=== PATIENT | male | born 1935 | race Caucasian/White ===

== ENCOUNTER 2016-04-23 11:57 | Observation (INO) | payer MEDICARE, OTHER ==
[~2016-04-23] VITALS: Ht 170.2 cm; Wt 76.0 kg
[2016-04-23] VITALS (8 sets, daily range): BP systolic 115–148; BP diastolic 59–68; PULSE 58–70; RESP 16–20; TEMP 98.1; O2SAT 97–99
[~2016-04-23 11:57] MED LIST: ALPR0.5T3 PO; AMIT8CAP6 PO; ASPI81TA21 PO; CARV10 PO; CLON1 PO; HYDR-3533 PO; LAMO150T PO; LEXA10TA PO; METHY10 PO; OCUV PO; OMEP20TA PO; PERC5TAB12 PO; ROSU20 PO
[2016-04-23 12:20] LABS: AUTOMATED NEUTROPHIL # 4.1 TH/MM3 (1.8-7.7); BASOPHIL # 0.1 TH/MM3 (0-0.2); BASOPHIL % 1.5 % (0.0-2.0); EOSINOPHIL # 0.2 TH/MM3 (0-0.4); EOSINOPHIL % 3.4 % (0.0-4.0); HEMATOCRIT 38.5 % (39.0-51.0); HEMO FLAGS DIFF FINAL; LYMPH % 26.8 % (9.0-44.0); LYMPHOCYTE # 1.8 TH/MM3 (1.0-4.8); MEAN CELL VOLUME 87.4 FL (80.0-100.0); MEAN CORPUSCULAR HEMOGLOBIN 28.6 PG (27.0-34.0); MEAN CORPUSCULAR HGB CONC 32.7 % (32.0-36.0); MONO % 7.9 % (0.0-8.0); NEUT % 60.4 % (16.0-70.0); PLATELET COUNT 276 TH/MM3 (150-450); RED BLOOD COUNT 4.41 MIL/MM3 (4.50-5.90); RED CELL DISTRIBUTION WIDTH 16.7 % (11.6-17.2); WHITE BLOOD COUNT 6.7 TH/MM3 (4.0-11.0)
[2016-04-23 12:26] LABS: CHLORIDE 110 MEQ/L (98-107); POTASSIUM 3.8 MEQ/L (3.5-5.1); SODIUM (NA) 143 MEQ/L (136-145)
[2016-04-23 12:30] LABS: ANION GAP 10 MEQ/L (5-15); BICARBONATE 23.3 MEQ/L (21.0-32.0); BLOOD UREA NITROGEN 11 MG/DL (7-18)
[2016-04-23] MEDS ORDERED: ASPIRIN 325 MG TAB PO ONE (12:30)
[2016-04-23] MEDS ORDERED: NITROGLYCERIN 2% OINT 1 GM PACKET TOPICAL ONE (12:30)
[2016-04-23 12:33] LABS: ALT (GPT) 17 U/L (12-78); APTT (PATIENT) 25.5 SEC (24.3-30.1); AST (GOT) 15 U/L (15-37); GLOMERULAR FILTRATION RATE 53 ML/MIN (>89); PROTHROMBIN TIME - PATIENT 10.6 SEC (9.8-11.6)
[2016-04-23 12:35] LABS: TOTAL BILIRUBIN ADULT 0.5 MG/DL (0.2-1.0)
[2016-04-23 12:36] LABS: ALKALINE PHOSPHATASE 88 U/L (45-117); CREATINE KINASE 175 U/L (39-308)
--- NOTE | 2016-04-23 12:39 | PD ---
HPI Chief Complaint: Chest Pain Time Seen by Provider: 12:17 Travel History International Travel<30 days: No Contact w/Intl Traveler<30days: No Traveled to known affect area: No History of Present Illness HPI This 80-year-old male complaining of left-sided chest pain for the clock this morning. He says he is also having some numbness of his arms and legs breath. Patient has has a history of dementia and is not aware that he has a history of heart disease. His indicates that he had stents with Dr. Cavazos 2002. She says he has had 4 stents. He is supposed to take aspirin but he refuses to take it because he bruises from IT. PFSH Past Medical History Arthritis: Yes Bipolar Disorder: Yes Anxiety: Yes Depression: Yes Cancer: Yes (PROSTATE) Cardiovascular Problems: Yes High Cholesterol: Yes Cerebrovascular Accident: Yes Diabetes: No Diminished Hearing: No Endocrine: No Gastrointestinal Disorders: Yes Genitourinary: Yes Hypertension: Yes Immune Disorder: No Implanted Vascular Access Dvce: No Kidney Stones: Yes Musculoskeletal: Yes Neurologic: No Psychiatric: Yes Reproductive: No Respiratory: No Past Surgical History Abdominal Surgery: Yes (HERNIA REPAIR) Cardiac Surgery: Yes (STENTS) Genitourinary Surgery: Yes (TURP, LITHOTRIPSY X4) Other Surgery: Yes (INGUINAL HERNIA REPAIR) Social History Alcohol Use: No (DENIES) Tobacco Use: Yes (1 PPD) Substance Use: No Allergies-Medications (Allergen,Severity, Reaction): Coded Allergies: No Known Allergies (Verified , 04/23/16) Reported Meds & Prescriptions Reported Meds & Active Scripts Active Reported Ocuvite (Multiple Vitamins W/ Minerals) 1 Tab 1 Tab PO DAILY Lortab (Hydrocodone-Acetaminophen) 5-325 Mg Tab 1 Tab PO Q6H PRN Voltaren Topical (Diclofenac Topical) 1% Gel 1 Applic TOPICAL DIRECTED PRN Restasis Opth Drops (Cyclosporine Opth Drops) 0.05% Emul 1 Drop EACH EYE BID Omeprazole 20 Mg Tab 20 Mg PO DAILY Alprazolam 0.5 Mg Tab 0.5 Mg PO DIRECTED PRN Ritalin IR (Methylphenidate HCl) 10 Mg Tab 10 Mg PO TIDAC Lamotrigine 150 Mg Tab 150 Mg PO BID Crestor (Rosuvastatin Calcium) 20 Mg Tab 20 Mg PO HS Coreg Cr 24 HR (Carvedilol) 10 Mg Cap 10 Mg PO DAILY Review of Systems General / Constitutional: No: Fever, Chills Eyes: No: Diploplia HENT: No: Headaches Cardiovascular: Positive: Chest Pain or Discomfort Respiratory: Positive: Shortness of Breath Gastrointestinal: No: Vomiting, Diarrhea Genitourinary: No: Urgency, Frequency Musculoskeletal: No: Myalgias Skin: No Rash Physical Exam Narrative GENERAL: Well-developed male SKIN: Warm and dry. HEAD: Atraumatic. Normocephalic. EYES: Pupils equal and round. No scleral icterus. No injection or drainage. ENT: No nasal bleeding or discharge. Mucous membranes pink and moist. NECK: Trachea midline. No JVD. CARDIOVASCULAR: Regular rate and rhythm. No murmur appreciated. RESPIRATORY: No accessory muscle use. Clear to auscultation. Breath sounds equal bilaterally. GASTROINTESTINAL: Abdomen soft, non-tender, nondistended. Hepatic and splenic margins not palpable. MUSCULOSKELETAL: No obvious deformities. No clubbing. No cyanosis. No edema. NEUROLOGICAL: Awake and alert. No obvious cranial nerve deficits. Motor grossly within normal limits. Normal speech. He is not oriented to time, there is repetitive questioning PSYCHIATRIC: Appropriate mood and affect; insight and judgment limited. Data Data Last Documented VS Vital Signs Date Time Temp Pulse Resp B/P Pulse Ox O2 Delivery O2 Flow Rate FiO2 04/23/16 12:48 68 18 133/64 98 Nasal Cannula 2 04/23/16 12:10 98.1 Orders Complete Blood Count With Diff (04/23/16 12:12) Comprehensive Metabolic Panel (04/23/16 12:12) Creatine Kinase (Cpk) (04/23/16 12:12) Ckmb (Isoenzyme) Profile (04/23/16 12:12) Troponin I (04/23/16 12:12) Prothrombin Time / Inr (Pt) (04/23/16 12:12) Act Partial Throm Time (Ptt) (04/23/16 12:12) Chest, Single Ap (04/23/16 12:30) Aspirin (Aspirin) (04/23/16 12:30) Nitroglycerin 2% Oint (Nitroglycerin 2% (04/23/16 12:30) CKMB (04/23/16 12:10) CKMB% (04/23/16 12:10) B-Type Natriuretic Peptide (04/23/16 13:13) Labs Laboratory Tests Test 04/23/16 12:10 White Blood Count 6.7 TH/MM3 Red Blood Count 4.41 MIL/MM3 Hemoglobin 12.6 GM/DL Hematocrit 38.5 % Mean Corpuscular Volume 87.4 FL Mean Corpuscular Hemoglobin 28.6 PG Mean Corpuscular Hemoglobin 32.7 % Concent Red Cell Distribution Width 16.7 % Platelet Count 276 TH/MM3 Mean Platelet Volume 8.8 FL Neutrophils (%) (Auto) 60.4 % Lymphocytes (%) (Auto) 26.8 % Monocytes (%) (Auto) 7.9 % Eosinophils (%) (Auto) 3.4 % Basophils (%) (Auto) 1.5 % Neutrophils # (Auto) 4.1 TH/MM3 Lymphocytes # (Auto) 1.8 TH/MM3 Monocytes # (Auto) 0.5 TH/MM3 Eosinophils # (Auto) 0.2 TH/MM3 Basophils # (Auto) 0.1 TH/MM3 CBC Comment DIFF FINAL Differential Comment Prothrombin Time 10.6 SEC Prothromb Time International 1.0 RATIO Ratio Activated Partial 25.5 SEC Thromboplast Time Sodium Level 143 MEQ/L Potassium Level 3.8 MEQ/L Chloride Level 110 MEQ/L Carbon Dioxide Level 23.3 MEQ/L Anion Gap 10 MEQ/L Blood Urea Nitrogen 11 MG/DL Creatinine 1.30 MG/DL Estimat Glomerular Filtration 53 ML/MIN Rate Random Glucose 140 MG/DL Calcium Level 8.8 MG/DL Total Bilirubin 0.5 MG/DL Aspartate Amino Transf 15 U/L (AST/SGOT) Alanine Aminotransferase 17 U/L (ALT/SGPT) Alkaline Phosphatase 88 U/L Total Creatine Kinase 175 U/L Creatine Kinase MB 2.0 NG/ML Troponin I LESS THAN 0.02 NG/ML Total Protein 7.9 GM/DL Albumin 3.9 GM/DL [facility] Medical Decision Making Medical Screen Exam Complete: Yes Emergency Medical Condition: Yes Medical Record Reviewed: Yes Differential Diagnosis Differential includes pneumonia, atypical chest pain, anxiety Narrative Course Has paresthesias are suggestive of hyperventilation. His EKG shows a sinus rhythm. There are symmetrically inverted T waves across the precordial leads. These were not present EKGs that were done in 2015. His troponin is normal. Chest x-ray shows cardiomegaly. There is dilatation of the aortic root and ascending aorta and arch with aortic ectasia. This is similar to previous exam. In [address] scan of the chest which confirmed aneurysmal dilatation in marked tortuosity of the thoracic aorta. I have discussed the case with Dr. Briones. He asked that the patient be transferred to [facility] in [facility] so he can further evaluate the patient's pain and EKG changes Diagnosis Primary Impression: Chest pain Qualified Code: R07.9 - Chest pain, unspecified type Hernandez Holman MD Apr 23, 2016 12:39
[2016-04-23] MEDS ORDERED: ROSU20 PO (13:04)
[2016-04-23] MEDS ORDERED: OMEP20TA PO (13:04)
[2016-04-23] MEDS ORDERED: DICL1GEL TOPICAL (13:04)
[2016-04-23] MEDS ORDERED: CARV10 PO (13:04)
[2016-04-23] MEDS ORDERED: ALPR0.5T3 PO (13:04)
[2016-04-23] MEDS ORDERED: LAMO150T PO (13:04)
[2016-04-23] MEDS ORDERED: METHY10 PO (13:04)
[2016-04-23] MEDS ORDERED: REST0.05 EACH EYE (13:04)
[2016-04-23] MEDS ORDERED: OCUVTAB PO (13:07)
[2016-04-23] MEDS ORDERED: HYDR-3533 PO (13:07)
--- NOTE | 2016-04-23 13:12 | RADHPO ---
EXAM DATE/TIME: 04/23/2016 12:57 [facility] COMPARISON: CT THORAX W CONTRAST, October 06, 2014, 11:36. CHEST PA & LAT, October 06, 2014, 8:05. SHOULDER RIGHT COM PLETE (>2VWS), October 06, 2014, 8:07. INDICATIONS : Short of breath and dizziness since yesterday. MEDICAL HISTORY : Cardiovascular disease. SURGICAL HISTORY : Coronary artery stent. ENCOUNTER: Initial ACUITY: 2 days PAIN SCORE: 0/10 LOCATION: Bilateral chest FINDINGS: There is advanced cardiomegaly. There is dilation of the aortic root and ectasia of the arch. This ap pears similar to previous exam. There is no significant pleural effusion. There are chronic interstit ial changes throughout the pulmonary parenchyma. The visualized bony structures demonstrate degenerat riri changes in shoulders bilaterally. CONCLUSION: 1. Advanced cardiomegaly. 2. 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 David Aj MD on April 23, 2016 at 13:09 Board Certified Radiologist. This report was verified electronically.
[2016-04-23] MEDS ORDERED: ACETAMINOPHEN/HYDROcodone 325 MG/5 MG TAB PO PRN (14:30)
[2016-04-23] MEDS ORDERED: DICLOFENAC TOPICAL PRN (16:30)
[2016-04-23] MEDS: METHYLPHENIDATE HCL 10 MG TAB PO SCH (17:14)
[2016-04-23] MEDS: NITROGLYCERIN 2% OINT 1 GM PACKET TOPICAL SCH (17:14)
[2016-04-23] MEDS: ENOXAPARIN SODIUM 40 MG/0.4 ML SYRINGE SQ SCH (17:14)
[2016-04-23] MEDS ORDERED: lamoTRIgine 100 MG TAB PO SCH (21:00)
[2016-04-23] MEDS ORDERED: ATORVASTATIN 40 MG TAB PO SCH (21:00)
[2016-04-23] MEDS ORDERED: CYCLOSPORINE OPTH EACH EYE SCH (21:00)
[2016-04-23] MEDS: ALPRAZolam 0.5 MG TAB PO PRN (21:51)
[2016-04-23] MEDS: lamoTRIgine 25 MG TAB PO SCH (21:52)
[2016-04-24] VITALS (14 sets, daily range): BP systolic 145–167; BP diastolic 64–84; PULSE 63–75; RESP 20–24; TEMP 97.6–97.8; O2SAT 98–100
[2016-04-24] MEDS: NITROGLYCERIN 2% OINT 1 GM PACKET TOPICAL SCH ×3 (00:01→12:57)
[2016-04-24] MEDS: ALPRAZolam 0.5 MG TAB PO PRN (05:10)
[2016-04-24] MEDS: ENOXAPARIN SODIUM 40 MG/0.4 ML SYRINGE SQ SCH (05:10)
[2016-04-24] MEDS ORDERED: PANTOPRAZOLE SOD 20 MG DELAYED RELEASE TAB PO SCH (09:00)
[2016-04-24] MEDS ORDERED: CARVEDILOL 3.125 MG TAB PO SCH (09:00)
[2016-04-24] MEDS ORDERED: lamoTRIgine 100 MG TAB PO SCH (09:00)
[2016-04-24] MEDS ORDERED: ASPIRIN EC 325 MG TABEC PO SCH (09:00)
[2016-04-24] MEDS: METHYLPHENIDATE HCL 10 MG TAB PO SCH ×2 (09:43→12:57)
--- NOTE | 2016-04-24 10:21 | MH ---
cc: CHRIST HERNANDEZ MD DATE OF ADMISSION: 04/23/2016 DATE OF : 1935 CHIEF COMPLAINT Anxiety, shortness of breath. HISTORY OF PRESENT ILLNESS This is a pleasant 80-year-old white male who came into the hospital this morning with documentation of left-sided chest pain. The patient is a poor historian and has a significant history of dementia so I have gathered as much data from him as I can. There are no family members with him currently. The patient initially was telling me that he did not have any chest pain, but he did finally describe some epigastric pain. He states that he is very nervous and anxious and that he was breathing fast and had numbness associated in his upper and lower extremities on both sides. The patient did complain of some headache. He states that he was dizzy and thinks that he passed out around 10 o'clock yesterday morning after his anxiety attack. He does admit to hot flashes, some decreased appetite, but no nausea or vomiting. During our conversation the patient was focused on breathing fast and anxiety. The patient also stated he had been to the urologist and had to wear a bag for three days. He could not give me any time factor but seem to feel like this was more of a recent event. During my exam the patient begun crying uncontrollably for approximately a minute but was able to refocus and give me more data with some supportive care. The patient does have a history of heart disease. According to the in the emergency room he had four st[address] Dr. García in 2002. He is supposed to take an aspirin but he refuses to take it. There were nonspecific T-wave changes noted on his EKG in the emergency room setting. All this information I am gathering from the record. PAST MEDICAL HISTORY 1. Arthritis. 2. Bipolar disorder. 3. Anxiety. 4. Depression. 5. Cancer of the prostate. 6. Cardiovascular disease. 7. Hyperlipidemia. 8. History of stroke. 9. Gastrointestinal issues. 10. Hypertension. 11. Urinary leaking. 12. Previous fall with fractured ribs right side recently. 13. Kidney stones. 14. Musculoskeletal numbness and aching. 15. Psychiatric history which is bipolar disease. PAST SURGICAL HISTORY 1. Abdominal surgery hernia repair. 2. Cardiac stents. 3. Lithotripsy x4. 4. TURP. 5. Inguinal hernia repair. ALLERGIES No known allergies. MEDICATIONS Medications reported: 1. Multivitamins. 2. Lortab 5/325, one every six hours p.r.n. 3. Voltaren topical cream p.r.n. 4. Restasis ophthalmic drops, one drop in each eye twice a day. 5. Omeprazole 20 mg daily. 6. Diazepam 0.5 mg p.o. p.r.n. 7. Ritalin 10 mg p.o. t.i.d. a.c. 8. Crestor 20 mg at h.s. 9. Coreg 10 mg p.o. daily. 10. Lamotrigine 150 mg p.o. b.i.d. SOCIAL HISTORY The patient is , currently lives at home with his . She is not present at the moment. Denies any alcohol. Previous tobacco user, one pack a day. He states that he quit two years ago. No illicit drug use. FAMILY HISTORY Unknown. REVIEW OF SYSTEMS A 12-point review was attempted. Information given was unorganized. To my knowledge the patient has been positive for epigastric and/or chest pain, shortness of breath, urinary frequency and leaking, decreased appetite, anxiety disorder, uncontrollable crying, hot flashes, shortness of breath, numbness in his arms and legs, headache. Other systems were attempted to evaluate and negative per my assessment. PHYSICAL EXAMINATION GENERAL: A well-nourished, well-developed male who looks his stated age, resting in the bed. SKIN: Warm and dry. No rashes. HEENT: Atraumatic, normocephalic. Pupils are 3. PERRLA. No scleral icterus. No drainage. Mucous membranes in the nasal and oral cavity are pink and slightly dry but no discharge. NECK: Supple. No JVD. CARDIOVASCULAR: Regular rate and rhythm. Heart rate around 60. He does have a blowing systolic murmur, grade 3/6, heard predominantly at the second intercostal space and at the left lower sternal border. No rubs or gallops. No edema. LUNGS: Breath sounds are equal bilateral and clear to auscultation anteriorly and posteriorly. ABDOMEN: Round, soft, nontender, nondistended. No palpable pain in his epigastric region. EXTREMITIES: No clubbing, cyanosis or edema. He does move his extremities with purpose. NEUROLOGIC: Awake and alert x3. He can talk and give information but has some short-term and long-term confusion. Speech is normal. One uncontrollable crying episode during the exam. He is not oriented to time. PSYCHIATRIC: Judgment is limited. Insight is limited. Mood is controlled except for that one episode of crying. VITAL SIGNS: Temperature 98.1, pulse 60-66, respiratory rate 20, blood pressure 150/64 at 0300 this morning. DIAGNOSTIC DATA White count 6.7, RBC 4.41, hemoglobin 12.6, hematocrit 38.5, platelet count 276. All other diagnostic studies in the complete blood count are normal. INR is 1. Sodium 143, potassium 3.8, chloride 110, carbon dioxide 23.3, anion gap 10, BUN 11, creatinine 1.30, GFR 53, random glucose 140, albumin 3.9, total protein 7.9. BNP 11. Troponin x3 less than 0.02. IMAGING DATA Chest x-ray: Cardiomegaly advanced, dilation of the aortic root, ascending aorta and arch with aortic ectasia. ASSESSMENT 1. Epigastric/chest pain, rule out cardiac event. 2. Depression and anxiety disorder with panic attacks. 3. Possible syncopal episode. 4. Cardiovascular disease. 5. Hypertension. 6. Degenerative disc disease. 7. Hyperlipidemia. 8. Urinary leaking and urgency. PLAN Our plan is to admit for observation, rule out a cardiac event. His case has been discussed with Dr. García. He wants to further investigate the patient's pain and any EKG changes. The patient's medications have been reconciled. He will be placed on telemetry. Lovenox for DVT prophylaxis. Heart-healthy diet. ASA also scheduled. Protonix for PUD prophylaxis. BMP. Will monitor his labs and vital signs. Cardiology consult for his expert opinion. There were some symmetrically inverted T-waves on the patient's EKG that were not present in 2015 according to cardiology. This will be further evaluated. Dictated by: FRANCISCO Gordon MD TENNILLE Garcia/BRAD /9:05 AM /10:20 AM PT is seen & Examined d/w PT & His at bedside d/w Mary Anne 2Decho Left ventricle: The cavity size was moderately dilated. Wall thickness was normal. Systolic function was moderately reduced. The estimated ejection fraction was 40%. Wall motion was normal; there were no regional wall motion abnormalities. - Mod AR - Aortic root: moderately dilated. - Mitral valve: Calcified annulus. Mildly thickened leaflets, . - Left atrium: The atrium was mildly dilated. - Pulmonary arteries: PA peak pressure: 31mm Hg (S). I also spoke w Dr garcía ,He has cleared him for d/c out pt f/u w Dr Villanueva in 1 to 2 wks see MRS see Orders f/u pcp d/w Christ Keith MD Apr 24, 2016 16:32 MTDD
[2016-04-24] MEDS: lamoTRIgine 25 MG TAB PO SCH (10:26)
[2016-04-24 12:15] LABS: HDL CHOLESTEROL 54.6 MG/DL (40.0-60.0)
[2016-04-24] MEDS ORDERED: CLOPIDOGREL 75 MG TAB PO SCH (13:00)
[2016-04-24] MEDS ORDERED: ALPRAZolam 0.5 MG TAB PO PRN (16:00)
--- NOTE | 2016-04-24 16:09 | EC ---
Study Study Date:04/24/2016 STUDY CONCLUSIONS SUMMARY - Left ventricle: The cavity size was moderately dilated. Wall thickness was normal. Systolic function was moderately reduced. The estimated ejection fraction was 40%. Wall motion was normal; there were no regional wall motion abnormalities. - Aortic valve: Moderate regurgitation. - Aortic root: The aortic root was moderately dilated. - Mitral valve: Calcified annulus. Mildly thickened leaflets, . - Left atrium: The atrium was mildly dilated. - Pulmonary arteries: PA peak pressure: 31mm Hg (S). If LV function is below 40, please consider prescribing an ACEI or ARB or document rationale for non-use. PROCEDURE DATA STUDY STATUS: Elective. Procedure: Transthoracic echocardiography. Image quality was good. Scanning was performed from the parasternal, apical, and subcostal acoustic windows. Study completion: The patient tolerated the procedure well. Transthoracic echocardiography. M-mode, complete 2D, complete spectral Doppler, and color Doppler. Patient status: Inpatient. CARDIAC ANATOMY LEFT VENTRICLE: The cavity size was moderately dilated. Wall thickness was normal. Systolic function was moderately reduced. The estimated ejection fraction was 40%. Wall motion was normal; there were no regional wall motion abnormalities. AORTIC VALVE: Trileaflet; mildly thickened leaflets. Doppler: Transvalvular velocity was within the normal range. There was no stenosis. Moderate regurgitation. Mean gradient: 13mm Hg (S). Peak gradient: 28mm Hg (S). AORTA: Aortic root: The aortic root was moderately dilated. MITRAL VALVE: Calcified annulus. Mildly thickened leaflets, . Doppler: Transvalvular velocity was within the normal range. There was no evidence for stenosis. Trace regurgitation. LEFT ATRIUM: The atrium was mildly dilated. RIGHT VENTRICLE: The cavity size was normal. Wall thickness was normal. PULMONIC VALVE: Doppler: Transvalvular velocity was within the normal range. There was no evidence for stenosis. No regurgitation. TRICUSPID VALVE: Structurally normal valve. Doppler: Transvalvular velocity was within the normal range. Trace regurgitation. PULMONARY ARTERY: The main pulmonary artery was normal-sized. Systolic pressure was within the normal range. RIGHT ATRIUM: The atrium was normal in size. PERICARDIUM: There was no pericardial effusion. SYSTEMIC VEINS: Inferior vena cava: The vessel was normal in size. BASIC MEASUREMENTS ADULT Normal Left ventricle LV internal dimension, ED, chordal level, *68.2 mm 43-52 PLAX LV internal dimension, ES, chordal level, *52.7 mm 23-38 PLAX Fractional shortening, chordal level, PLAX *23 % >29 LV posterior wall thickness, ED 9.3 mm IVS/LVPW ratio, ED 1.14 <1.3 Volume, ED, MOD, 1-plane 267 ml Volume, ES, MOD, 1-plane 144 ml Ejection fraction, MOD, 1-plane 46 % Stroke volume, MOD, 1-plane 123 ml Volume, ED, MOD, 2-plane 178 ml Volume, ES, MOD, 2-plane 102 ml Ejection fraction, MOD, 2-plane 43 % Stroke volume, MOD, 2-plane 76 ml Ventricular septum Septal thickness, ED 10.6 mm Left atrium Anterior-posterior dimension 42 mm Right ventricle RV internal dimension, ED, PLAX 28 mm 19-38 DOPPLER MEASUREMENTS ADULT Normal Main pulmonary artery Pressure, S *31 mm Hg =30 Aortic valve Peak velocity, S 265 cm/s Mean velocity, S 160 cm/s VTI, S 52.4 cm Mean gradient, S 13 mm Hg Peak gradient, S 28 mm Hg Mitral valve Peak E-wave velocity 39 cm/s Peak A-wave velocity 62.8 cm/s Peak E/A ratio 0.6 Tricuspid valve Regurgitant peak velocity 227 cm/s Peak RV-RA gradient, S 21 mm Hg Maximal regurgitant velocity 227 cm/s Systemic veins Estimated CVP 10 mm Hg Right ventricle RV pressure, S *31 mm Hg <30 LEGEND: Mean values are shown as u=mean value. Asterisk (*) browne values outside specified normal range. Prepared and signed by Sammie García [id number]
--- NOTE | 2016-04-24 16:16 | EKG ---
Date Performed: 04/24/2016 Time Performed: 05:10:44 PTAGE: 80 years EKG: Sinus rhythm LVH with secondary repolarization abnormality Extensive ST-T changes may be due to hypertrophy and/o r ischemia Abnormal ECG NO PREVIOUS TRACING DOCTOR: Peng Carrasco Interpretating Date/Time 04/24/2016 16:15:39
--- NOTE | 2016-04-24 16:32 | HHI.PR ---
Objective Objective Results - Vital Signs Date Time Temp Pulse Resp B/P Pulse Ox O2 Delivery O2 Flow Rate FiO2 04/24/16 12:00 75 04/24/16 11:37 97.6 64 20 154/68 98 04/24/16 11:37 Room Air 04/24/16 08:15 97.8 63 24 159/84 99 04/24/16 08:15 Room Air 04/24/16 08:00 72 04/24/16 06:08 66 04/24/16 05:00 65 04/24/16 04:00 63 04/24/16 03:00 66 04/24/16 03:00 64 150/64 99 04/24/16 02:00 63 04/24/16 01:00 63 04/24/16 00:05 63 167/72 100 04/24/16 00:00 67 04/23/16 23:39 66 18 143/66 99 Nasal Cannula 2 04/23/16 21:57 62 18 148/68 99 Nasal Cannula 2 04/23/16 18:10 70 18 128/65 98 Nasal Cannula 2 04/23/16 17:00 74 16 98 Nasal Cannula 2 I/O 04/23/16 04/23/16 04/23/16 04/24/16 04/24/16 04/24/16 07:00 15:00 23:00 07:00 15:00 23:00 Intake Total 240 ml 120 ml Output Total 150 ml 100 ml Balance 240 ml -150 ml 20 ml Intake Oral 240 ml 120 ml Output Urine Total 150 ml 100 ml # Voids 1 Result Diagram: 04/23/16 1210 04/23/16 1210 Other Results Laboratory Tests Test 04/23/16 04/23/16 04/24/16 17:02 21:31 11:35 Troponin I 0.02 0.02 Triglycerides Level 148 Cholesterol Level 128 LDL Cholesterol 44 HDL Cholesterol 54.6 Cholesterol/HDL Ratio 2.34 Physical Exam Physical Exam PT is seen & Examined d/w PT & His at bedside d/w Mary Anne 2Decho Left ventricle: The cavity size was moderately dilated. Wall thickness was normal. Systolic function was moderately reduced. The estimated ejection fraction was 40%. Wall motion was normal; there were no regional wall motion abnormalities. - Mod AR - Aortic root: moderately dilated. - Mitral valve: Calcified annulus. Mildly thickened leaflets, . - Left atrium: The atrium was mildly dilated. - Pulmonary arteries: PA peak pressure: 31mm Hg (S). I also spoke w Dr lazo ,He has cleared him for d/c out pt f/u w Dr Villanueva in 1 to 2 wks see MRS see Orders f/u pcp d/w Julio Keith MD Apr 24, 2016 16:32
[2016-04-24] MEDS ORDERED: ISOS30TA3 PO (16:35)
[2016-04-24] MEDS ORDERED: ASPI81TA11 PO (16:35)
[2016-04-24] MEDS ORDERED: PLAV75TA29 PO (16:35)
[2016-04-24] MEDS ORDERED: CARV6.25 PO (16:35)
--- NOTE | 2016-04-24 16:54 | EKG ---
Date Performed: 04/23/2016 Time Performed: 12:33:58 PTAGE: 80 years EKG: Sinus arrhythmia LVH with secondary repolarization abnormality Extensive ST-T changes may b e due to hypertrophy and/or ischemia Abnormal ECG PREVIOUS TRACING : 10/06/2014 09.57 Compared to the previous tracing, T wave abnormalities are new DOCTOR: Peng Carrasco Interpretating Date/Time 04/24/2016 16:53:36
--- NOTE | 2016-04-24 18:08 | MB ---
cc: GABRIELLE NGUYEN MD DATE OF CONSULTATION 04/24/16 HISTORY OF PRESENT ILLNESS Mr. Quiñones is a 80 year old white male with a history of coronary artery disease and coronary stenting. He also has dementia and anxiety disorder. He developed substernal chest discomfort two nights ago and again yesterday in the hospital. This has been controlled with nitroglycerine. He refuses to take his aspirin at home. His last stress test in 04/2014 showed small distal septal and anteroseptal reversible defects. This was a low risk study. The patient has significant anxiety disorder. He currently is pain free. He was found to have abnormal electrocardiogram. He was transferred to [facility] for further management. PAST MEDICAL HISTORY 1. Coronary artery disease, coronary stenting. 2. History of dyslipidemia 3. Dementia 4. Stroke 5. Prostate cancer 6. Depression 7. Anxiety 8. Bipolar disorder 9. Arthritis 10. Rib fracture 11. Nephrolithiasis 12. Hernia repair 13. Transurethral resection of the prostate MEDICATIONS At home, 1. Coreg CR 10 mg a day 2. Crestor 20 mg a day 3. Lamotrigine 4. Methylphenidate 5. Xanax 0.5 mg 5-6 a day 6. Omeprazole 7. Restasis 8. PreserVision 9. Voltaren ALLERGIES None. SOCIAL HISTORY The patient is a previous smoker. He does not drink alcohol. He is accompanied by his . FAMILY HISTORY Negative for heart disease REVIEW OF SYSTEMS Otherwise negative. PHYSICAL EXAMINATION VITAL SIGNS: Blood pressure 154/68, pulse 64 and regular. HEENT: Negative, 2+ carotid upstrokes, no bruits. LUNGS: Clear. HEART: Regular with no murmurs, rubs or gallops ABDOMEN: Soft, no bruits. NEUROLOGIC: Grossly nonfocal. The patient is severely anxious and mildly confused. CARDIOLOGY STUDIES Electrocardiogram was reviewed and showed sinus arrhythmia, PACs, left ventricular hypertrophy and diffuse ST-T changes. This is unchanged on the serial EKGs. LABORATORY DATA Potassium 3.8, creatinine 1.3, troponin negative times three, AST and ALT normal. LDL 44, HDL 55. DIAGNOSES 1. Unspecified angina 2. Coronary artery disease, history of coronary intervention. 3. Anxiety disorder. 4. Bipolar disorder 5. Dyslipidemia 6. Hypertension 7. Mild dementia DISPOSITION Mr. Quiñones has been ruled out for myocardial infarction by enzymes. He is currently pain free. He will be started on Imdur. His beta marco will be titrated. We will continue the management of cardiac risk factors including dyslipidemia. We will start him back on aspirin and also add clopidogrel. I will follow him for cardiology. I will see him back for follow up in our office shortly after discharge. At this time, I am concerned about noncompliance with his medications and, therefore, we will proceed with medical therapy rather than cardiac catheterization. MD PATRICIA Tabares/ /12:45 PM /5:41 PM [email or web address]
[2016-04-24] MEDS ORDERED: CARVEDILOL 6.25 MG TAB PO SCH (21:00)
[2016-04-25] MEDS ORDERED: ISOSORBIDE MONONITRATE 30 MG TAB PO SCH (07:00)
[2016-04-25] MEDS ORDERED: ASPIRIN EC 81 MG TABEC PO SCH (09:00)
== END 2016-04-24 17:20 | disposition home or self-care (01) ==
LOC: PHEFT 11:57 → INTOOBSV 13:52 → PHEDA 13:52 → PHEDH 17:51 → HCIS 23:42
PROVIDERS: ADMIT Specialist; ATTEND Specialist
DX: I25.119 Atherosclerotic heart disease of native coronary artery with unspecified angina pectoris (principal); I11.9 Hypertensive heart disease without heart failure; I77.819 Aortic ectasia, unspecified site; F41.1 Generalized anxiety disorder; F31.9 Bipolar disorder, unspecified; F03.90 Unspecified dementia, unspecified severity, without behavioral disturbance, psychotic disturbance, mood disturbance, and anxiety; E78.5 Hyperlipidemia, unspecified; E78.00 Pure hypercholesterolemia, unspecified; Z85.46 Personal history of malignant neoplasm of prostate; Z86.73 Personal history of transient ischemic attack (TIA), and cerebral infarction without residual deficits; Z95.5 Presence of coronary angioplasty implant and graft; Z87.442 Personal history of urinary calculi; Z87.891 Personal history of nicotine dependence
CPT/HCPCS: 71010; 80053; 80061; 82550; 82552; 83880; 84484; 85025; 85610; 85730; 93005; 93306; 99285; G0378; J1650

== ENCOUNTER 2016-10-14 22:32 | Observation (INO) | payer MEDICARE, OTHER ==
[~2016-10-14] VITALS: Ht 172.7 cm; Wt 67.0 kg
[~2016-10-14 22:32] MED LIST changes: -AMIT8CAP6 PO; +ASPI81TA11 PO; -ASPI81TA21 PO; -CARV10 PO; +CARV6.25 PO; -CLON1 PO; +DICL1GEL TOPICAL; +ISOS30TA3 PO; -LEXA10TA PO; -OCUV PO; +OCUVTAB PO; -PERC5TAB12 PO; +PLAV75TA29 PO; +REST0.05 EACH EYE
[2016-10-14 22:43] VITALS: O2SAT 99
[2016-10-14] MEDS ORDERED: SODIUM CHLOR 0.9% 1000 ML INJ 1,000 ML IV ONE (22:46)
[2016-10-14 22:55] VITALS: O2SAT 99
--- NOTE | 2016-10-14 22:57 | RADRPT ---
EXAM DATE/TIME: 10/14/2016 22:38 [facility] COMPARISON: CT BRAIN W/O CONTRAST, April 03, 2014, 11:07. INDICATIONS : Stroke alert; bilateral leg numbness. RADIATION DOSE: 62.24 CTDIvol (mGy) This report was called by to at MEDICAL HISTORY : Non-responsive. SURGICAL HISTORY : Non-responsive. ENCOUNTER: Initial ACUITY: 1 day PAIN SCALE: 0/10 LOCATION: cranial TECHNIQUE: Multiple contiguous axial images were obtained of the head. Using automated exposure control and adj ustment of the mA and/or kV according to patient size, radiation dose was kept as low as reasonably a chievable to obtain optimal diagnostic quality images. DICOM format image data is available electro nically for review and comparison. FINDINGS: There is mild volume loss and patchy periventricular white matter disease. This is stable. No signs o f acute infarct, hemorrhage, or mass. There are no fractures. CONCLUSION: No acute disease. This report was called to Dr. Youngblood by Dr. Valadez at 10:56 PM October 14, 2016. Cliff Valadez MD on October 14, 2016 at 22:53 Board Certified Radiologist. This report was verified electronically.
[2016-10-14] MEDS: SODIUM CHLOR 0.9% 1000 ML INJ 1,000 ML IV SCH (23:00)
[2016-10-14 23:01] LABS: AUTOMATED NEUTROPHIL # 6.1 TH/MM3 (1.8-7.7); BASOPHIL # 0.1 TH/MM3 (0-0.2); BASOPHIL % 0.6 % (0.0-2.0); EOSINOPHIL # 0.2 TH/MM3 (0-0.4); EOSINOPHIL % 1.9 % (0.0-4.0); HEMATOCRIT 39.4 % (39.0-51.0); HEMO FLAGS DIFF FINAL; LYMPHOCYTE # 3.2 TH/MM3 (1.0-4.8); MEAN CELL VOLUME 87.1 FL (80.0-100.0); MEAN CORPUSCULAR HEMOGLOBIN 29.5 PG (27.0-34.0); MEAN CORPUSCULAR HGB CONC 33.8 % (32.0-36.0); MONO % 9.5 % (0.0-8.0); PLATELET COUNT 243 TH/MM3 (150-450); RED BLOOD COUNT 4.53 MIL/MM3 (4.50-5.90); RED CELL DISTRIBUTION WIDTH 16.6 % (11.6-17.2); WHITE BLOOD COUNT 10.6 TH/MM3 (4.0-11.0)
[2016-10-14 23:02] VITALS: BP 198/105; PULSE 68; RESP 24; TEMP 98; O2SAT 97
[2016-10-14 23:06] VITALS: BP 198/105; PULSE 68; RESP 24; TEMP 98
[2016-10-14 23:11] VITALS: BP 181/101; PULSE 67; RESP 20; O2SAT 98
[2016-10-14 23:11] LABS: BICARBONATE 26.6 MEQ/L (21.0-32.0)
[2016-10-14 23:13] LABS: APTT (PATIENT) 25.4 SEC (24.3-30.1); PROTHROMBIN TIME - PATIENT 10.5 SEC (9.8-11.6)
[2016-10-14 23:30] VITALS: BP 152/75; PULSE 68; RESP 20; O2SAT 98
[2016-10-15] VITALS (28 sets, daily range): BP systolic 118–171; BP diastolic 53–114; PULSE 56–66; RESP 17–38; TEMP 97.8–98.7; O2SAT 92–99
[2016-10-15] MEDS ORDERED: VOLT1GEL4 TOPICAL (00:13)
[2016-10-15 01:02] LABS: BLOOD, URINE TRACE (NEG); GLUCOSE,URINE NEG (NEG); KETONE, URINE TRACE mg/dL (NEG); NITRITE,URINE NEG (NEG); PH, URINE 6.5 (5.0-8.5)
[2016-10-15 01:04] LABS: URINE COLOR YELLOW (YELLW/STRAW)
[2016-10-15] MEDS ORDERED: IOHEXOL 350 MG/ML 10 ML VIAL (for RAD DIAG) IV ONE (01:06)
--- NOTE | 2016-10-15 01:06 | RADRPT ---
EXAM DATE/TIME: 10/15/2016 00:25 [facility] COMPARISON: CT BRAIN W/O CONTRAST, October 14, 2016, 22:38. INDICATIONS : Stroke alert; bilateral leg weakness. IV CONTRAST: 75 cc Omnipaque 350 (iohexol) IV ; Cumulative dose for multiple exams. RADIATION DOSE: 43.05 CTDIvol (mGy) ; Combined studies MEDICAL HISTORY : Cerebrovascular disease. Hypertension. SURGICAL HISTORY : None. ENCOUNTER: Initial ACUITY: 1 day PAIN SCALE: 0/10 LOCATION: cranial TECHNIQUE: Volumetric scanning was performed using a multi-row detector CT scanner. The data was post processed with a variety of visualization algorithms including full volume maximum intensity projection, multi -planar sliding thin slab reformation, curved planar reformation, and surface rendering techniques. Using automated exposure control and adjustment of the mA and/or kV according to patient size, radiat ion dose was kept as low as reasonably achievable to obtain optimal diagnostic quality images. DICO M format image data is available electronically for review and comparison. FINDINGS: There is excellent visualization of the major intracranial arteries out to the second-order branch ve ssels. There is no evidence of vessel truncation or stenosis, and no evidence for vascular malformat ion. 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 No definite neck is demonstrated. The basilar artery and posterior cerebral arteries are all patent. 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 Los Hargrove MD on October 15, 2016 at 0:59 Board Certified Radiologist. This report was verified electronically.
[2016-10-15 01:07] LABS: SQUAMOUS EPITHELIAL CELL URINE 0-5 /hpf (0-5)
[2016-10-15 01:20] LABS: AMPHETAMINE, URINE NEG (NEG)
[2016-10-15 01:21] LABS: BARBITURATES, URINE NEG (NEG)
[2016-10-15 01:26] LABS: COCAINE, URINE NEG (NEG)
--- NOTE | 2016-10-15 01:28 | RADRPT ---
EXAM DATE/TIME: 10/15/2016 00:25 [facility] COMPARISON: No previous studies available for comparison. INDICATIONS : Stroke alert; bilateral leg weakness. IV CONTRAST: 75 cc Omnipaque 350 (iohexol) IV ; Cumulative dose for multiple exams. RADIATION DOSE: 43.05 CTDIvol (mGy) ; Combined studies MEDICAL HISTORY : Cerebrovascular disease. Hypertension. SURGICAL HISTORY : None. ENCOUNTER: Initial ACUITY: 1 day PAIN SCALE: 0/10 LOCATION: neck Elevated flow velocities and ICA/CCA ratios have been found to correlate with increased degrees of vessel stenosis, calculated as percentage of diameter relative to a normal segment of distal ICA/CCA. TECHNIQUE: Volumetric scanning was performed using a multirow detector CT scanner. The data was post processed with a variety of visualization algorithms including full-volume maximum intensity projection, multip lanar sliding thin-slab reformation, curved-planar reformation, and surface-rendering techniques. Us ing automated exposure control and adjustment of the mA and/or kV according to patient size, radiatio n dose was kept as low as reasonably achievable to obtain optimal diagnostic quality images. DICOM f ormat image data is available electronically for review and comparison. FINDINGS: AORTIC ARCH: There is a three-vessel origin of the great vessels from the aorta. No evidence of ostial narrowing. The proximal vessels are tortuous. There are some atherosclerotic changes along the arch and at the origin of the vessels. RIGHT CAROTID: The common carotid artery is intact. There is calcified plaques involving the distal common carotid a rtery and at the bifurcation. The internal and distal vessels are patent. No focal or high-grade sten osis is demonstrated. There is some tortuosity involving the internal and external vessels.. LEFT CAROTID: The common carotid artery is intact. There is calcified plaquing at the carotid bifurcation. The inte rnal and external vessels are patent. No focal or high-grade stenosis is demonstrated. There is mild tortuosity of the internal carotid artery.. VERTEBRALS: The right vertebral artery is dominant and patent. There is a very tiny but patent left vertebral art peter. CONCLUSION: 1. Calcified atherosclerotic plaquing is noted at both carotid bifurcations. 2. No focal high-grade stenosis is demonstrated. 3. Tiny but patent left vertebral artery. Los Hargrove MD on October 15, 2016 at 1:18 Board Certified Radiologist. This report was verified electronically.
--- NOTE | 2016-10-15 02:27 | PD ---
HPI Chief Complaint: Neuro Symptoms/ Deficits Time Seen by Provider: 22:41 Travel History International Travel<30 days: No Contact w/Intl Traveler<30days: No Traveled to known affect area: No History of Present Illness HPI 80-year-old male presents to the emergency department by private transportation for complaint of bilateral arm and leg numbness feeling agitated and reporting he's having a anxiety attack but this is not his typical anxiety attack intermittent chest wall sharp stabbing pain intermittent weakness of both arms and both legs and intermittent shortness of breath, heart racing, and stating he feels like he is going to pass out. Patient has had no recent long distance travel no protracted bedrest no surgical procedure. Patient had no recent fall or injury. Patient's had no recent febrile illness according to his . relates that patient daily complains of pains and numbness and agitation. does state that this has been bothering him since 5:30 this evening when she noticed that he decided to stop eating his dinner because he stated he was having difficulty swallowing although there was no choking or episodes of shortness of breath or complaint of chest pain. Patient has been pacing all evening and increasing in his agitation. went to bed at 9 PM and then states that he came to her room at 9:30 while she was still awake stating that he felt like he needed to go to the hospital. states she did not notice any balance disturbance or difficulty with his ambulation and did not appear to have any upper extremity weakness there is been no dropping of objects or items. also states that he always has some slurring of speech in his current speech is normal and she does not notice any facial droop or difference in his facial appearance. Patient himself states that he feels as if his arms are weak and his legs are weak. states that there has been no recent febrile illness or viral illness. Also there is been no change in his medications. Reportedly the patient has been taking his medications as reportedly prescribed. Patient takes only aspirin as a blood thinning agent. Patient does have history of hypertension CAD with previous stents placed in 2002 dyslipidemia dementia CVA depression anxiety prostate cancer with TURP nephrolithiasis with lithotripsy inguinal herniorrhaphy and insomnia. No tobacco use 2 years or alcohol use. Patient is followed by Dr. 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 Ibrahim as his neurologist. No report of seizure disorder. PFSH Past Medical History Narrative Medical hypertension CAD with previous stents placed in 2002 dyslipidemia dementia CVA depression anxiety prostate cancer with TURP nephrolithiasis with lithotripsy inguinal herniorrhaphy and insomnia. No tobacco use 2 years or alcohol use. Nursing notes reviewed Hx Anticoagulant Therapy: No Arthritis: Yes Bipolar Disorder: Yes Anxiety: Yes Depression: Yes Cancer: Yes (PROSTATE) Cardiac Catheterization: Yes Cardiovascular Problems: Yes High Cholesterol: Yes Cerebrovascular Accident: Yes (TIA'S) Diabetes: No Diminished Hearing: No Endocrine: No Gastrointestinal Disorders: Yes GERD: Yes Genitourinary: Yes Hypertension: Yes Immune Disorder: No Implanted Vascular Access Dvce: No Kidney Stones: Yes Musculoskeletal: Yes Neurologic: No Psychiatric: Yes Reproductive: No Respiratory: No Past Surgical History Abdominal Surgery: Yes (HERNIA REPAIR) Cardiac Surgery: Yes (STENTS) Coronary Stent: Yes (2002) Genitourinary Surgery: Yes (TURP, LITHOTRIPSY X4) Other Surgery: Yes (INGUINAL HERNIA REPAIR) Social History Alcohol Use: No (DENIES) Tobacco Use: No (QUIT 2013) Substance Use: No Allergies-Medications (Allergen,Severity, Reaction): Coded Allergies: Diclofenac (Verified Allergy, Severe, Itching, 10/15/16) Levofloxacin (Verified Allergy, Severe, RASH, 10/15/16) SOB Reported Meds & Prescriptions Reported Meds & Active Scripts Active Isosorbide Mononitrate ER (Isosorbide Mononitrate) 30 Mg Bree 30 Mg PO DAILY@07 Coreg (Carvedilol) 6.25 Mg Tab 6.25 Mg PO BID Aspirin EC (Aspirin) 81 Mg Tabdr 81 Mg PO DAILY Reported Voltaren (Diclofenac Sodium) 100 Gm Gel..gram. 100 % TOPICAL QID Ocuvite (Multiple Vitamins W/ Minerals) 1 Tab 1 Tab PO DAILY Restasis Opth 0.05% (Cyclosporine Opth 0.05%) 0.05% Emul 1 Drop EACH EYE BID Alprazolam 0.5 Mg Tab 0.5 Mg PO TID PRN Ritalin IR (Methylphenidate HCl) 10 Mg Tab 10 Mg PO TIDAC Lamotrigine 150 Mg Tab 150 Mg PO BID Crestor (Rosuvastatin Calcium) 20 Mg Tab 20 Mg PO HS Review of Systems Except as stated in HPI: all other systems reviewed are Neg General / Constitutional: No: Fever, Chills Eyes: No: Visual changes HENT: No: Headaches, Vertigo Cardiovascular: No: Chest Pain or Discomfort, Palpitations, Diaphoresis, Syncope Respiratory: Positive: Shortness of Breath Gastrointestinal: No: Vomiting, Abdominal Pain Genitourinary: No: Dysuria Musculoskeletal: Positive: Myalgias, Arthralgias, Weakness, No: Pain Skin: No Rash Neurologic: Positive: Weakness, Dizziness, Slurred Speech, Paresthesia, No: Syncope, Focal Abnormalities, Coordination Problem, Ataxia, Headache, Change in Mentation, Incontinence, Seizures, Sensory Disturbance Psychiatric: Positive: Anxiety Endocrine: No: Heat Intolerance, Cold Intolerance Hematologic/Lymphatic: No: Easy Bruising Physical Exam Narrative GENERAL: Well-developed well-nourished anxious male in no respiratory distress with some mild slurring of speech GCS 15 SKIN: Warm and dry. HEAD: Atraumatic. Normocephalic. EYES: Pupils equal and round. Extraocular muscles intact. Unable to discern visual field deficit. No scleral icterus. No injection or drainage. ENT: No nasal bleeding or discharge. Mucous membranes pink and moist. Tongue midline. Airway patent. NECK: Trachea midline. No JVD. CARDIOVASCULAR: Regular rate and rhythm. RESPIRATORY: No accessory muscle use. Clear to auscultation. Breath sounds equal bilaterally. GASTROINTESTINAL: Abdomen soft, non-tender, nondistended. Hepatic and splenic margins not palpable. MUSCULOSKELETAL: Extremities without clubbing, cyanosis, or edema. No obvious deformities. Radial pulses 2+ to palpation dorsalis pedis pulses 2+ to palpation no pallor or coolness capillary refill brisk and less than 2 seconds per digit. NEUROLOGICAL: Awake and alert. No obvious cranial nerve deficits. Motor grossly within normal limits. Five out of 5 muscle strength in the arms and legs. DTRs 2+ and equal. Patient able to discern pinprick and light touch upper extremities and lower extremities. No limb ataxia. No pronator drift. Mild slurring of speech. PSYCHIATRIC: Agitated and cooperative. Data Data Last Documented VS Vital Signs Date Time Temp Pulse Resp B/P Pulse Ox O2 Delivery O2 Flow Rate FiO2 10/15/16 01:30 64 20 146/61 98 Nasal Cannula 2 10/14/16 23:06 98.0 Orders Neuro Checks Q2HX12,Q4H (10/14/16 22:46) Nursing Bedside Swallow Assess .ONCE (10/14/16 22:46) Activity Bed Rest (10/14/16 22:46) Diet Npo (10/15/16 Breakfast) Prothrombin Time / Inr (Pt) (10/14/16 22:46) Act Partial Throm Time (Ptt) (10/14/16 22:46) Complete Blood Count With Diff (10/14/16 22:46) Basic Metabolic Panel (Bmp) (10/14/16 22:46) Fibrinogen (10/14/16 22:46) Creatine Kinase (Cpk) (10/14/16 22:46) Troponin I (10/14/16 22:46) Ua Includes Microscopic (10/14/16 22:46) Drug Screen, Random Urine (10/14/16 22:46) Type And Screen (10/14/16 22:46) Ct Brain W/O Iv Contrast(Rout) (10/14/16 ) Electrocardiogram (10/14/16 ) Consult Neurology (10/14/16 22:46) Sodium Chlor 0.9% 1000 Ml Inj (Ns 1000 M (10/14/16 22:46) Blood Glucose (10/14/16 22:46) Ecg Monitoring (10/14/16 22:46) Iv Access Insert/Monitor (10/14/16 22:46) NPO (10/14/16 22:46) Oximetry (10/14/16 22:46) Oxygen Administration (10/14/16 22:46) Resp Oxygen Hiren C Titrat 1-4 L (10/14/16 22:46) Sodium Chlor 0.9% 1000 Ml Inj (Ns 1000 M (10/14/16 23:00) (Hub Use Only)Inp Phy Cons/Ref (10/14/16 ) Cta Brain W Iv Contrast W 3d (10/15/16 ) Cta Neck W Iv Contrast W 3d (10/15/16 ) Iohexol 350 Inj (Omnipaque 350 Inj) (10/15/16 01:06) Admit Order (Ed Use Only) (10/15/16 ) ^ Saline Lock (10/15/16 02:27) Resp Oxygen Hiren C Titrat 1-4 L (10/15/16 ) Notify Dr: Other (10/15/16 02:27) Sodium Chloride 0.9% Flush (Ns Flush) (10/15/16 09:00) Sodium Chloride 0.9% Flush (Ns Flush) (10/15/16 02:30) Labs Laboratory Tests Test 10/14/16 10/15/16 22:50 00:55 White Blood Count 10.6 TH/MM3 Red Blood Count 4.53 MIL/MM3 Hemoglobin 13.3 GM/DL Hematocrit 39.4 % Mean Corpuscular Volume 87.1 FL Mean Corpuscular Hemoglobin 29.5 PG Mean Corpuscular Hemoglobin 33.8 % Concent Red Cell Distribution Width 16.6 % Platelet Count 243 TH/MM3 Mean Platelet Volume 8.9 FL Neutrophils (%) (Auto) 58.0 % Lymphocytes (%) (Auto) 30.0 % Monocytes (%) (Auto) 9.5 % Eosinophils (%) (Auto) 1.9 % Basophils (%) (Auto) 0.6 % Neutrophils # (Auto) 6.1 TH/MM3 Lymphocytes # (Auto) 3.2 TH/MM3 Monocytes # (Auto) 1.0 TH/MM3 Eosinophils # (Auto) 0.2 TH/MM3 Basophils # (Auto) 0.1 TH/MM3 CBC Comment DIFF FINAL Differential Comment Sodium Level 145 MEQ/L Potassium Level 4.0 MEQ/L Chloride Level 110 MEQ/L Carbon Dioxide Level 26.6 MEQ/L Anion Gap 8 MEQ/L Blood Urea Nitrogen 14 MG/DL Creatinine 1.00 MG/DL Estimat Glomerular Filtration 72 ML/MIN Rate Random Glucose 97 MG/DL Calcium Level 9.3 MG/DL Total Creatine Kinase 162 U/L Troponin I 0.03 NG/ML Prothrombin Time 10.5 SEC Prothromb Time International 1.0 RATIO Ratio Activated Partial 25.4 SEC Thromboplast Time Fibrinogen 315 mg/dL Blood Type B POSITIVE Antibody Screen NEGATIVE Blood Bank Comment Urine Color YELLOW Urine Turbidity CLEAR Urine pH 6.5 Urine Specific [place] 1.026 Urine Protein NEG mg/dL Urine Glucose (UA) NEG mg/dL Urine Ketones TRACE mg/dL Urine Occult Blood TRACE Urine Nitrite NEG Urine Bilirubin NEG Urine Leukocyte Esterase NEG Urine RBC 3-5 /hpf Urine WBC 6-8 /hpf Urine Squamous Epithelial 0-5 /hpf Cells Urine Bacteria NONE /hpf Microscopic Urinalysis Comment Urine Opiates Screen NEG Urine Barbiturates Screen NEG Urine Amphetamines Screen NEG Urine Benzodiazepines Screen POS Urine Cocaine Screen NEG Urine Cannabinoids Screen NEG MDM Medical Decision Making Medical Screen Exam Complete: Yes Emergency Medical Condition: Yes Medical Record Reviewed: Yes Interpretation(s) CBC & BMP Diagram 10/14/16 22:50 Vital Signs Date Time Temp Pulse Resp B/P Pulse Ox O2 Delivery O2 Flow Rate FiO2 10/15/16 01:30 64 20 146/61 98 Nasal Cannula 2 10/15/16 01:00 62 20 153/61 97 Nasal Cannula 2 10/15/16 00:30 66 20 148/62 98 10/15/16 00:00 66 20 162/79 97 10/14/16 23:35 65 20 100 Nasal Cannula 2 10/14/16 23:30 68 20 152/75 98 10/14/16 23:11 67 20 181/101 98 Nasal Cannula 2 10/14/16 23:06 98.0 68 24 198/105 10/14/16 23:02 90 Nasal Cannula 2 10/14/16 23:02 98.0 68 24 198/105 97 Nasal Cannula 2 10/14/16 22:55 99 Nasal Cannula 2.00 10/14/16 22:43 99 2.00 EKG: Normal sinus rhythm rate [address] elevation or injury pattern change noted artifact is present at baseline Last Impressions Head CT 10/14/16 0000 Signed Impressions: Service Date/Time: Friday, October 14, 2016 22:38 - CONCLUSION: No acute disease. This report was called to Dr. Youngblood by Dr. Valadez at 10:56 PM October 14, 2016. Cliff Valadez MD UDS: Benzodiazepines Troponin I: 0.03, not elevated Differential Diagnosis Stroke alert, CVA, TIA, seizure, conversion reaction, adverse medication reaction, arrhythmia, PE, IA, dissection Narrative Course Stroke alert called NIHSS: 2 case discussed immediately with on-call neurologist Dr. Painting; patient not a TPA candidate based on duration of symptoms and NIH score and variable complaints and intermittent complaints with spouse reporting that patient is near baseline based on speech and no focal findings on initial evaluation. Patient will need to be admitted with neurology consult. Maintenance fluids at 70 cc per hour. Head of bed flat. Patient has returned from CAT scan and speech has improved but still appears to be agitated and slightly confused as far as following some commands. No focal deficit sensory or motor. Lab values grossly normal range patient continues to complain of feeling like he is cold like he is going to pass out like his heart was racing and patient is in sinus rhythm mildly hypertensive blood pressure has improved on its own without medication intervention. Patient resting more comfortably speech has remained essentially the same occupation spouse reports this is his baseline. EKG reveals no acute injury pattern changed troponin I 0.03. Patient sent for a CTA brain and neck Critical Care Narrative Aggregate critical care time was 35 minutes. Time to perform other separately billable procedures was not included in the critical care time. My time did not include minutes spent treating any other patients simultaneously or on activities that did not directly contribute to the patient's treatment. The services I provided to this patient were to treat and/or prevent clinically significant deterioration that could result in: CVA-hemorrhagic versus ischemic , cardiopulmonary arrest, I provided critical care services requiring my management, as noted below: Chart data review, documentation time, medication orders and management, vital sign assessments/reviewing monitor data, ordering and reviewing lab tests, ordering and interpreting/reviewing x-rays and diagnostic studies, care of the patient and discussion of the patient with the admitting physicians. Physician Communication Physician Communication stat call stroke alert to neurologist discussed with Dr Painting --not tPA candiadate; 10:[address] Rory munoz acute; discussed CT with neurologist; sent for CTA; discussed with Dr Painting;discussed with Josué Simms -- admit to Dr Milligan to [facility] ICU; space controller aware to ICU Diagnosis Primary Impression: TIA (transient ischemic attack) Qualified Code: G45.9 - Transient cerebral ischemia, unspecified type Additional Impression: Agitation Admitting Information Admitting Physician Requests: Admit Marilyn Youngblood MD Oct 15, 2016 02:27
[2016-10-15] MEDS ORDERED: SODIUM CHLORIDE 0.9% FLUSH 10 ML FLUSH IVF PRN (02:30)
[2016-10-15] MEDS ORDERED: ONDANSETRON HCL 4 MG/2 ML VIAL IVP PRN (03:15)
[2016-10-15] MEDS ORDERED: BISACODYL 10 MG SUPP RECTAL PRN (03:15)
[2016-10-15] MEDS ORDERED: NALOXONE HCL 0.4 MG/ML AMP IV PRN (03:15)
[2016-10-15] MEDS ORDERED: ACETAMINOPHEN 325 MG TAB PO PRN (03:15)
[2016-10-15] MEDS ORDERED: SENNOSIDES 8.6 MG TAB PO PRN (03:15)
[2016-10-15] MEDS ORDERED: CHLORHEXIDINE GLUCONATE 2 % 1 PACK (2 CLOTHS)(extra cloths) TOPICAL PRN (05:15)
[2016-10-15] MEDS: SODIUM CHLORIDE 0.9% FLUSH 10 ML FLUSH IV FLUSH SCH ×2 (08:49→21:15)
[2016-10-15] MEDS ORDERED: ASPIRIN EC 81 MG TABEC PO SCH (09:00)
[2016-10-15] MEDS: MULTIVITAMIN-OPHTHALMIC 1 TAB PO SCH (09:00)
[2016-10-15] MEDS ORDERED: HALOPERIDOL LACTATE 5 MG/ML AMP IM PRN (09:45)
--- NOTE | 2016-10-15 10:04 | MH ---
cc: LOPEZ ANDERSON MD DATE OF ADMISSION 10/15/2016 CHIEF COMPLAINT Bilateral arm and leg numbness, feeling agitated. HISTORY OF PRESENT ILLNESS This is a 80-year-old male with past medical, surgical history significant for hypertension, coronary artery disease with previous stent placement in 2002, dyslipidemia, dementia, CVA, depression, anxiety, prostate cancer with transurethral resection of the prostate, nephrolithiasis with lithotripsy, inguinal herniorrhaphy and insomnia. He came to the ER at [facility] via private vehicle complaining of bilateral arm and leg numbness, feeling agitated and reported having anxiety attacks complaining of intermittent chest wall sharp, stabbing pain, weakness, both arms and legs and intermittent shortness of breath, heart racing on sitting feels like he is going to pass out, but the patient has dementia too. His history is not much reliable. He denies any recent distance travel. No protracted bedrest. No recent fall or injury. was present at the bedside in the ER and gave a history to the ER doctor. Also complaining of some difficulty swallowing, although there was no acute event episode of shortness of breath or complaining of chest pain. The went to bed at 9:00 p.m. and then stated that he came to her room at 9:30 while she was still awake stating that he felt like he needed to go to the hospital. stated he did not notice any balance disturbance and difficulty with his ambulation and did not appeared to have any upper extremity weakness. There has been known dropping of object or item. Also, did not appear to having any upper extremity weakness or drooping of objects from the hand. The also stated that he always had some slurred speech in his recurrent speech which is his baseline. No facial droop noticed. The patient take only aspirin as a blood thinner agent. The patient sees Dr. Mendenhall as a primary care doctor. Other than that, nothing significant. PAST MEDICAL AND SURGICAL HISTORY As dictated above. PAST SURGICAL HISTORY Significant for: 1. Hernia repair 2. Stent placement in the heart in 2002. 3. Transurethral resection of the prostate 4. Lithotripsy x4 5. Inguinal hernia repair SOCIAL HISTORY Lives at home with his . Quit smoking in 2013. No drug abuse. Lives at home. FAMILY HISTORY Nothing significant. Again, the patient's history and review of systems is not reliable. ALLERGIES LEVAQUIN AND DICLOFENAC. MEDICATIONS Include: 1. Isosorbide mononitrate ER 30 mg p.o. daily 2. Coreg 6.25 mg twice a day 3. Aspirin 81 mg p.o. daily 4. Voltaren 100 mg topical q.i.d. 5. Ocuvite one p.o. daily 6. Restasis ophthalmic 0.5% one drop each eye twice a day 7. Alprazolam 0.5 mg three times a day 8. Ritalin 10 mg p.o. t.i.d. 9. Lamotrigine 150 mg p.o. b.i.d. 10. Cholesterol 20 mg q.h.s. REVIEW OF SYSTEMS Positive for weakness, dizziness, slurred speech, prior CVA. Again, the patient's history and review of systems is not reliable. PHYSICAL EXAM This is a 80-year male laying on the bed not in acute distress. VITAL SIGNS: Temperature 98.4, heart rate 64, respirations 26, blood pressure 160/64, O2 saturation 94% room air. HEENT: Normocephalic, atraumatic. EOMI. PERRL. Oral mucosa moist. NECK: Supple. No visible thyromegaly or neck mass. Trachea central. CARDIOVASCULAR: Regular rate and rhythm. RESPIRATORY: Clear to auscultation bilaterally. ABDOMEN: Soft, nontender. Bowel sounds audible. EXTREMITIES: No cyanosis or clubbing. Full range of motion of all extremities. NEUROLOGIC: Awake, alert, oriented x2, has dementia. Moving all extremities. SKIN: Warm and dry. PSYCH: The patient is cooperative. LABORATORY DATA Includes CBC is totally unremarkable. BMP totally unremarkable except for chloride of 110 high, GFR 72 low. PT 10.5, INR 1.0, APTT 25.4. Fibrinogen 315. Urine examination showed trace of ketone, trace of occult blood, 6-8 WBC. Urine toxicology screen positive for benzodiazepine. Nasal screen MRSA pending. CT of the brain was done shows no acute disease. CTA done shows calcified atherosclerotic plaquing noted at both carotid bifurcations. No focal high-grade stenosis was demonstrated. Tiny, but patent left vertebral artery. 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 ASSESSMENT/PLAN This is a 80-year male who came to the ER diagnosed with bilateral arm and leg weakness. There are no focal neurological deficits. Neurology consulted. Neuro check every two hours. The patient's CT of the brain does not show anything acute. 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 No focal high-grade stenosis is demonstrated. Tiny but patent left vertebral artery. Further recommendation per neurology. History of dementia. Continue home medications. History of arthritis. Continue home medications. History of coronary artery disease. Continue home medication. Anxiety. Continue with Xanax 0.5 mg p.o. t.i.d. History of hyperlipidemia. Continue home medication. DVT prophylaxis. SCD. GI prophylaxis with Protonix 40 mg p.o. daily. We are going to manage the patient on a daily basis and make recommendation on a daily basis. Lopez Anderson MD EA/JUAREZ /8:50 AM /9:33 AM
[2016-10-15] MEDS ORDERED: CYCLOSPORINE OPTH 0.05% EACH EYE SCH (10:45)
[2016-10-15] MEDS ORDERED: PILL SPLITTER OTHER PRN (10:45)
[2016-10-15] MEDS: ALPRAZolam 0.5 MG TAB PO PRN ×2 (10:51→18:50)
[2016-10-15] MEDS: CARVEDILOL 6.25 MG TAB PO SCH ×2 (10:51→21:00)
[2016-10-15] MEDS: lamoTRIgine 100 MG TAB PO SCH ×2 (10:56→21:13)
[2016-10-15] MEDS: PANTOPRAZOLE SOD 40 MG DELAYED RELEASE TAB PO SCH (10:56)
[2016-10-15] MEDS ORDERED: METHYLPHENIDATE HCL 5 MG TAB PO SCH (12:00)
--- NOTE | 2016-10-15 12:40 | MG ---
cc: KAM ESTRELLA Lab No: Date: 10/15/2016 Age: 80 Sex: M Race: DATE OF 1935 MEDICAL HISTORY 1. Arthritis. 2. Bipolar psychiatric problems. 3. Caffeine use. 4. Hypercholesterolemia. 5. Hypertension. 6. Stent. 7. Dyslipidemia. 8. Dementia. 9. Stroke. 10. Depression and anxiety. 11. Prostate cancer. 12. Agitation, anxiety. MEDICATIONS 1. Haldol. 2. Isosorbide mononitrate. 3. Extended-release Coreg. 4. Aspirin. 5. Voltaren. 6. Restasis. 7. Alprazolam. 8. Ritalin. 9. Lamotrigine. 10. Crestor. DESCRIPTION At the beginning of the EEG recording, the background activity is 8-9 Hz alpha located posteriorly bilateral and asymmetrical. During the EEG recording the patient became drowsy with drop out of the background and transitioned to sleep with a background activity of 6-7 theta Hz. The EEG recording is contaminated with eye movement artifact and muscle artifact. Hyperventilation was not performed. There were no electrographic seizures or epileptiform discharges noted. INTERPRETATION This is an awake, drowsy and asleep EEG. No ictal activity. No focality.The absence of electrographic seizures or epileptiform discharges does not rule out diagnosis of seizures. Clinical correlation is recommended. MD MARI Hubbard/LINK /12:20 PM /12:37 PM [facility]
[2016-10-15] MEDS ORDERED: DICLOFENAC SODIUM 1% TOPICAL SCH (13:00)
--- NOTE | 2016-10-15 15:13 | EKG ---
Date Performed: 10/14/2016 Time Performed: 22:56:34 PTAGE: 80 years EKG: Sinus rhythm MINIMAL VOLTAGE CRITERIA FOR LVH, CONSIDER NORMAL VARIANT NONSPECIFIC T-WAVE ABNORMALITY Baseline ar tifact Likely no significant change BORDERLINE ECG PREVIOUS TRACING : 04/24/2016 05.10 DOCTOR: Susi Barrett Interpretating Date/Time 10/15/2016 15:11:59
[2016-10-15] MEDS: ATORVASTATIN 40 MG TAB PO SCH (21:12)
[2016-10-15] MEDS: SODIUM CHLOR 0.9% 1000 ML INJ 1,000 ML IV SCH (21:14)
[2016-10-16] VITALS (13 sets, daily range): BP systolic 106–156; BP diastolic 48–66; PULSE 53–65; RESP 15–24; TEMP 97.2–97.9; O2SAT 93–97
[2016-10-16] MEDS: CHLORHEXIDINE GLUCONATE 2 % 1 PACK (2 CLOTHS)(taper/protocol) TOPICAL SCH (04:00)
[2016-10-16 05:08] LABS: AUTOMATED NEUTROPHIL # 3.2 TH/MM3 (1.8-7.7); BASOPHIL # 0.1 TH/MM3 (0-0.2); BASOPHIL % 2.2 % (0.0-2.0); EOSINOPHIL # 0.2 TH/MM3 (0-0.4); EOSINOPHIL % 2.7 % (0.0-4.0); HEMATOCRIT 38.1 % (39.0-51.0); HEMO FLAGS DIFF FINAL; LYMPH % 28.1 % (9.0-44.0); LYMPHOCYTE # 1.7 TH/MM3 (1.0-4.8); MEAN CELL VOLUME 88.7 FL (80.0-100.0); MEAN CORPUSCULAR HEMOGLOBIN 27.7 PG (27.0-34.0); MEAN CORPUSCULAR HGB CONC 31.3 % (32.0-36.0); MONO % 11.2 % (0.0-8.0); NEUT % 55.8 % (16.0-70.0); PLATELET COUNT 193 TH/MM3 (150-450); RED CELL DISTRIBUTION WIDTH 16.7 % (11.6-17.2); WHITE BLOOD COUNT 5.9 TH/MM3 (4.0-11.0)
[2016-10-16 05:18] LABS: CHLORIDE 112 MEQ/L (98-107); SODIUM (NA) 144 MEQ/L (136-145)
[2016-10-16 05:31] LABS: ALKALINE PHOSPHATASE 87 U/L (45-117); ALT (GPT) 23 U/L (12-78); ANION GAP 6 MEQ/L (5-15); AST (GOT) 19 U/L (15-37); BICARBONATE 26.1 MEQ/L (21.0-32.0); BLOOD UREA NITROGEN 12 MG/DL (7-18); GLOMERULAR FILTRATION RATE 90 ML/MIN (>89); TOTAL BILIRUBIN ADULT 0.5 MG/DL (0.2-1.0)
[2016-10-16] MEDS: ISOSORBIDE MONONITRATE 30 MG TAB PO SCH (05:40)
--- NOTE | 2016-10-16 05:52 | MB ---
cc: SURJIT THAYER M.D. DATE OF CONSULTATION 10/15/2016 DATE OF 1935 AGE [id number] years old. REASON FOR CONSULTATION Possible TIA. HISTORY OF PRESENT ILLNESS The patient is a 80-year-old man with a history of hypertension, heart disease, stent in 2002, dyslipidemia, dementia, questionably prior stroke, depression, anxiety, follows with Dr. Rios Decker for that, history of prostate cancer with TURP, penile implant, nephrolithiasis with lithotripsy, inguinal hernia repair and insomnia. He came in because of feelings agitation and anxiety. His states that he was fine yesterday. They went for a driving and he was washing the car. Then all of a sudden he started having what she would describe as a panic attack. He has had anxiety and depression for over 20 years; it seems like the anxiety part is getting worse. He follows with his psychiatrist but whenever he goes there he does not have any issues, so he has not had any change in medicine. The patient is sitting in the chair tearful without any apparent reason. He states that he cannot describe what he is feeling. He feels like he is going to . He does not seem to have any weakness but at times he does keep his head forward and drools. PAST MEDICAL HISTORY As stated. SOCIAL HISTORY Lives at home with his . Stopped smoking in 2013. No drugs. No alcohol. He is retired from [employer]. FAMILY HISTORY Noncontributory at this time. ALLERGIES LEVAQUIN. BACLOFEN. HOME MEDICINES 1. Imdur. 2. Coreg baby aspirin. 3. Voltaren. 4. Ocuvite. 5. Restasis. 6. Xanax 0.5 mg t.i.d. 7. Ritalin 10 mg t.i.d. 8. Lamotrigine 150 mg b.i.d. 9. Colestipol. 10. Aleve. 11. Not sure what the last medicine was unfortunately. PHYSICAL EXAMINATION VITALS: Temperature is 98.2, pulse 56, respiratory rate 24, blood pressure 142/59, sating at 96% by 2 liters nasal cannula. NECK: Supple. I do not appreciate any bruits. HEART: Regular. NEUROLOGICAL EXAMINATION: He is awake and alert but he does not really answer questions appropriately, seems to be confused at times. He states that we ask the same questions. He knows those answers. Then is asking for a urinal. Speech is not dysarthric. His pupils are reactive. His face looks symmetrical motor-ruvalcaba. Tone is normal. I do not see any overt weakness. His pig handler are weak bilaterally but not weaker from side to side. No leg lag. He is able to stand with assistance of the staff to urinate in the urinal. Gait is withheld. LABORATORY DATA Labs are reviewed. CBC is normal. Coag panel is unremarkable. Chemistries show a GFR of 72. Urine: 6-8 white cells. Toxicology was positive for benzos. IMAGING STUDIES CT head showed no acute findings. His neck CTA shows calcified atherosclerotic plaquing in both bifurcations of the carotids. No high-grade stenosis. Small but patent left vertebral artery. Head CTA shows a 4 mm cerebral aneurysm in the left MCA. EEG He did have an EEG that did not show any epileptic activity. There was not any slowing either. IMPRESSION A 80-year-old man with what looks like anxiety disorder with baseline dementia, likely getting worse. At this point in time, unfortunately an MRI cannot be done because of his penile implant. I do not think he has had a stroke. EEG did not show any epileptic activity. RECOMMENDATIONS I would consult Psychiatry for assistance in adjusting medications. I do not know why he is in the ICU. We will go ahead and also check thyroid panel to make sure - TSH, T3, T4 and a B12 and get a psychiatry consult please. Thank you. MD JOSE A Jo/LINK /7:02 PM /5:41 AM
[2016-10-16] MEDS: PANTOPRAZOLE SOD 40 MG DELAYED RELEASE TAB PO SCH (08:35)
[2016-10-16] MEDS: MULTIVITAMIN-OPHTHALMIC 1 TAB PO SCH (08:35)
[2016-10-16] MEDS: ALPRAZolam 0.5 MG TAB PO PRN (08:35)
[2016-10-16] MEDS: CARVEDILOL 6.25 MG TAB PO SCH ×2 (08:36→21:33)
[2016-10-16] MEDS: ASPIRIN EC 81 MG TABEC PO SCH (08:36)
[2016-10-16] MEDS: SODIUM CHLORIDE 0.9% FLUSH 10 ML FLUSH IV FLUSH SCH ×2 (08:36→21:33)
[2016-10-16] MEDS: lamoTRIgine 100 MG TAB PO SCH ×2 (08:36→21:33)
--- NOTE | 2016-10-16 08:38 | HHI.PR ---
Subjective History of Present Illness Patient feel better anxiety and agitation better. d/w SHAGUFTA Tomlin at bed side. Review of Systems Constitutional Constitutional: Fatigue, Weakness Psychiatric Psychiatric: Anxiety Vitals/Results Intake & Output 10/15/16 10/15/16 10/16/16 14:59 22:59 06:59 Intake Total 718 ml 305 ml 531 ml Output Total 625 ml 150 ml Balance 93 ml 305 ml 381 ml Intake Oral 240 ml IV Total 478 ml 305 ml 531 ml Output Urine Total 625 ml 150 ml # Voids 1 # Bowel Movements 0 1 Vital Signs Vital Signs Date Time Temp Pulse Resp B/P Pulse Ox O2 Delivery O2 Flow Rate FiO2 10/16/16 07:00 97.5 59 24 135/48 95 10/16/16 06:00 54 10/16/16 06:00 54 23 145/66 96 10/16/16 05:00 60 24 156/57 96 10/16/16 04:00 97.2 58 21 138/62 95 10/16/16 04:00 58 10/16/16 03:00 54 24 146/61 95 10/16/16 02:00 58 10/16/16 02:00 58 22 143/61 97 10/16/16 01:00 58 23 142/59 97 10/16/16 00:00 58 10/16/16 00:00 97.9 58 15 128/58 96 10/15/16 23:00 56 26 161/64 97 10/15/16 22:00 60 23 119/53 95 10/15/16 22:00 59 10/15/16 21:11 60 24 120/55 92 10/15/16 20:00 95 Nasal Cannula 2.00 10/15/16 20:00 98.3 64 29 95 10/15/16 20:00 62 10/15/16 19:00 64 28 10/15/16 18:00 60 22 96 10/15/16 18:00 60 10/15/16 17:00 56 10/15/16 17:00 56 23 128/68 97 10/15/16 16:00 97.8 56 24 142/109 94 10/15/16 16:00 56 10/15/16 15:00 56 24 142/59 96 10/15/16 15:00 56 10/15/16 14:00 58 17 128/54 95 10/15/16 14:00 58 10/15/16 13:00 60 20 118/54 94 10/15/16 12:00 98.2 62 22 120/53 94 10/15/16 12:00 62 10/15/16 11:00 33 155/68 97 10/15/16 10:00 66 21 169/67 94 10/15/16 10:00 66 10/15/16 09:00 66 10/15/16 09:00 66 156/82 96 CBC/BMP: 10/16/16 0455 10/16/16 0455 Lab Results Laboratory Tests Test 10/15/16 10/16/16 19:21 04:55 Thyroid Stimulating Hormone 0.951 uIU/ML 3rd Gen White Blood Count 5.9 TH/MM3 Red Blood Count 4.30 MIL/MM3 Hemoglobin 11.9 GM/DL Hematocrit 38.1 % Mean Corpuscular Volume 88.7 FL Mean Corpuscular Hemoglobin 27.7 PG Mean Corpuscular Hemoglobin 31.3 % Concent Red Cell Distribution Width 16.7 % Platelet Count 193 TH/MM3 Mean Platelet Volume 9.0 FL Neutrophils (%) (Auto) 55.8 % Lymphocytes (%) (Auto) 28.1 % Monocytes (%) (Auto) 11.2 % Eosinophils (%) (Auto) 2.7 % Basophils (%) (Auto) 2.2 % Neutrophils # (Auto) 3.2 TH/MM3 Lymphocytes # (Auto) 1.7 TH/MM3 Monocytes # (Auto) 0.7 TH/MM3 Eosinophils # (Auto) 0.2 TH/MM3 Basophils # (Auto) 0.1 TH/MM3 CBC Comment DIFF FINAL Differential Comment Sodium Level 144 MEQ/L Potassium Level 4.0 MEQ/L Chloride Level 112 MEQ/L Carbon Dioxide Level 26.1 MEQ/L Anion Gap 6 MEQ/L Blood Urea Nitrogen 12 MG/DL Creatinine 0.83 MG/DL Estimat Glomerular Filtration 90 ML/MIN Rate Random Glucose 107 MG/DL Calcium Level 8.2 MG/DL Total Bilirubin 0.5 MG/DL Aspartate Amino Transf 19 U/L (AST/SGOT) Alanine Aminotransferase 23 U/L (ALT/SGPT) Alkaline Phosphatase 87 U/L Total Protein 6.0 GM/DL Albumin 3.1 GM/DL Physical Exam General General Appearance: No Acute Distress, Comfortable Eyes Eye Exam: Pupils Equal, Pupils Reactive, Sclera White, Extraocular Movement Intact Throat Throat Exam: Oral Mucosa [place] & Moist, Oral Pharynx Normal Neck Neck Exam: Neck Supple, Trachea Midline Pulmonary Resp Exam: Clear Bilaterally, Breath Sounds Equal, No Distress Cardiology CV Exam: Regular, Normal Sinus Rhythm Gastrointestinal/Abdomen GI Exam: Soft, Non-Tender, Bowel Sounds Present Musculoskeletal MS Exam: Normal Tone Integumentary Skin Exam: Clear, Warm, Dry, Intact Extremeties Extremities Exam: No Edema Neurologic Neuro Exam: Alert, Awake, Moving All Extremities Neuro Remarks dementia VTE Prophylaxis VTE Prophylaxis Device: SCDs PUD Prophylasis PUD Prophylaxis: Protonix Assessment/Plan Assessment/Plan ASSESSMENT/PLAN This is a 80-year male who came to the ER diagnosed with 1. Bilateral arm and leg weakness. There are no focal neurological deficits. Neurology input noted per neurology anxiety disorder with baseline dementia, likely getting worse. At this point in time, unfortunately an MRI cannot be done because of his penile implant. stroke unlikely. EEG did not show any epileptic activity. consulted Psychiatry for assistance in adjusting medications. check thyroid panel to make sure - TSH, T4 and a B12 Neuro check every two hours. The patient's CT of the brain does not show anything acute. 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 No focal high-grade stenosis is demonstrated. Tiny but patent left vertebral artery. Further recommendation per neurology. History of dementia. Continue home medications. History of arthritis. Continue home medications. History of coronary artery disease. Continue home medication. Anxiety. Continue with Xanax 0.5 mg p.o. t.i.d. History of hyperlipidemia. Continue home medication. DVT prophylaxis. SCD. GI prophylaxis with Protonix 40 mg p.o. daily. We are going to manage the patient on a daily basis and make recommendation on a daily basis. Check CBC with diff CMP in AM. Discussed Condition with: Patient Lopez Milligan MD Oct 16, 2016 08:38
[2016-10-16 09:50] LABS: FREE T4 0.86 NG/DL (0.76-1.46)
--- NOTE | 2016-10-16 10:51 | PD.PSY.CON ---
Provisional Diagnosis Admission Date Oct 15, 2016 at 02:29 [place] I. Panic disorder, adjustment disorder with anxiety and depressed mood [place] II. Deferred [place] III. History of prostate cancer History of Present Illness Service Psychiatry Consult Requested By Primary Care Physician DO SAM Herrera The patient is a 80-year man domiciled with his in [place], retired, with psychiatric history of anxiety and depression, 1 previous psychiatric hospitalization about 26 years ago, 1 previous suicidal attempts, outpatient care with private psychiatrist in [place], he is on Xanax 0.5 mg 3 times a day, medical history of prostate cancer, who came to the ER diagnosed with Bilateral arm and leg weakness. Neurologic consult was appreciated. MRI cannot be done because of his penile implant. As per neurologist stroke unlikely. EEG did not show any epileptic activity. The patient's CT of the brain does not show anything acute. 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 No focal high-grade stenosis is demonstrated. Tiny but patent left vertebral artery. Further recommendation per neurology. Consulted Psychiatry for assistance in adjusting medications. TSH, T3-T4 completed in normal levels. On somatic evaluation today patient is found calm, cooperative and pleasant in the ICU. Patient stated that he feels much better now. He states that he has always suffered of anxiety attacks and he has been in treatment by his private psychiatrist with Xanax 0.5 mg 3 times a day. He is also taking other medication that he doesn't remember. He has been stable so far. However, in the last 2 weeks panic attacks has been increasing in intensity, severity and frequency. In the last 2 days he had several episodes of shaking, tremors and sweating. However the night before last night, he felt he was dying, having a heart attack due to the chest pain, with a sensation that he was about to , with profuse palpitation, sweating shakiness, numbness of the extremities and tremors. He episode last for about 30 minutes, but he was very afraid hours later. He was given Xanax last night he was able to sleep very good. At this moment the patient reports good mood, denies anhedonia, denies hopelessness, denies helplessness, denies suicidal and homicidal ideation, denies visual and auditory hallucinations. Patient is fully oriented 3, no attention deficit, no fluctuation of consciousness, no gross cognitive impairment present. Patient reports that he has been preoccupied in the last weeks "because my daughter and she has been living with me, and there are some issues". Patient denies the use of alcohol and illicit drugs. Review of Systems Constitutional: DENIES: Diaphoretic episodes, Fatigue, Fever, Weight gain, Weight loss, Chills, Dizziness, Change in appetite, Night Sweats Endocrine: DENIES: Heat/cold intolerance, Polydipsia, Polyuria, Polyphagia Eyes: DENIES: Blurred vision, Diplopia, Eye inflammation, Eye pain, Vision loss , Photosensitivity, Double Vision Ears, nose, mouth, throat: DENIES: Tinnitus, Hearing loss, Vertigo, Nasal discharge, Oral lesions, Throat pain, Hoarseness, Ear Pain, Running Nose, Epistaxis, Sinus Pain, Toothache, Odynophagia Respiratory: DENIES: Apneas, Cough, Snoring, Wheezing, Hemoptysis, Sputum production, Shortness of breath Cardiovascular: DENIES: Chest pain, Palpitations, Syncope, Dyspnea on Exertion , PND, Lower Extremity Edema, Orthopnea, Claudication Gastrointestinal: DENIES: Abdominal pain, Black stools, Bloody stools, Constipation, Diarrhea, Nausea, Vomiting, Difficulty Swallowing, Anorexia Genitourinary: DENIES: Sexual dysfunction, Urinary frequency, Urinary incontinence, Urgency, Hematuria, Dysuria, Nocturia, Penile Discharge, Testicular Pain, Testicular Swelling Musculoskeletal: DENIES: Joint pain, Muscle aches, Stiffness, Joint Swelling, Back pain, Neck pain Integumentary: DENIES: Abnormal pigmentation, Nail changes, Pruritus, Rash Hematologic/lymphatic: DENIES: Bruising, Lymphadenopathy Neurologic: DENIES: Abnormal gait, Headache, Localized weakness, Paresthesias, Seizures, Speech Problems, Tremor, Poor Balance Psychiatric: DENIES: Anxiety, Confusion, Mood changes, Depression, Hallucinations, Agitation, Suicidal Ideation, Homicidal Ideation, Delusions Past Family Social History Coded Allergies: Diclofenac (Verified Allergy, Severe, Itching, 10/15/16) Levofloxacin (Verified Allergy, Severe, RASH, 10/15/16) SOB MRI PRECAUTION (Verified Allergy, Severe, 10/15/16) 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 EG 10/15/2016 Active Scripts Isosorbide Mononitrate ER 30 Mg Taber30 Mg PO DAILY@07 #30 TAB Prov:Julio Owens MD 04/24/16 Carvedilol (Coreg)6.25 Mg Tab6.25 Mg PO BID #60 TAB Prov:Julio Owens MD 04/24/[address] (Aspirin EC)81 Mg Tabdr81 Mg PO DAILY #30 TAB Prov:Julio Owens MD 04/24/16 Reported Medications Diclofenac Sodium (Voltaren)100 Gm Gel..gram.100 % Topical Qid 10/15/16 Multiple Vitamins W/ Minerals (Ocuvite)1 Tab1 Tab PO DAILY Ref 0 04/23/16 Cyclosporine Opth 0.05% (Restasis Opth 0.05%)0.05% Emul1 Drop EACH EYE BID #1 BOX Ref 0 04/23/16 Alprazolam 0.5 Mg Tab0.5 Mg PO TID PRN (ANXIETY) Ref 0 04/23/16 Methylphenidate IR (Ritalin IR)10 Mg Tab10 Mg PO TIDAC #90 TAB Ref 0 04/23/16 Lamotrigine 150 Mg Oit162 Mg PO BID #30 TAB Ref 0 04/23/16 Rosuvastatin (Crestor)20 Mg Tab20 Mg PO HS #30 TAB Ref 0 04/23/16 Discontinued Reported Medications Hydrocodone-Acetaminophen (Lortab)5-325 Mg Tab1 Tab PO Q6H PRN (PAIN) Ref 0 04/23/16 Diclofenac Topical (Voltaren Topical)1% Gel1 Applic TOPICAL QID PRN (PAIN SCALE 1 TO 10) #100 GM Ref 0 04/23/16 Omeprazole 20 Mg Tab20 Mg PO DAILY #30 TAB Ref 0 04/23/16 Discontinued Scripts Clopidogrel (Plavix)75 Mg Tab75 Mg PO DAILY #30 TAB Prov:Julio Owens MD 04/24/16 Current Medications Medications (Trade) Dose Ordered Sig/Blessing Route Start Time Stop Time Status Last Admin (NS 1000 ml Inj) 1,000 ml @ 70 mls/hr [id number] IV 10/14/16 23:00 10/15/16 21:14 (NS Flush) 2 ml BID IV FLUSH 10/15/16 09:00 10/16/16 08:36 (NS Flush) 2 ml UNSCH PRN IVF 10/15/16 02:30 (Tylenol) 650 mg Q4H PRN PO 10/15/16 03:15 (Zofran Inj) 4 mg Q6H PRN IVP 10/15/16 03:15 (Narcan Inj) 0.4 mg UNSCH PRN IV 10/15/16 03:15 (Senokot) 17.2 mg Q12H PRN PO 10/15/16 03:15 (Dulcolax Supp) 10 mg DAILY PRN RECTAL 10/15/16 03:15 Miscellaneous Information Patient in critical care unit? Ass... [id number] .XX 10/15/16 05:15 10/15/16 05:15 (Chlorhexidine 2% Cloth) 3 pack DAILY@04 TOPICAL 10/16/16 04:00 10/20/16 04:01 10/16/16 04:00 (Chlorhexidine 2% Cloth) 3 pack UNSCH PRN TOPICAL 10/15/16 05:15 10/20/16 05:02 (Xanax) 0.5 mg TID PRN PO 10/15/16 09:00 10/16/16 08:35 (Ecotrin Ec) 81 mg DAILY PO 10/16/16 09:00 10/16/16 08:36 (Coreg) 6.25 mg BID PO 10/15/16 09:00 10/16/16 08:36 (Imdur) 30 mg DAILY@07 PO 10/16/16 07:00 10/16/16 05:40 (LaMICtal) 150 mg BID PO 10/15/16 10:39 10/16/16 08:36 (Ritalin Ir) 10 mg TIDAC PO 10/15/16 12:00 Hold (Ocuvite) 1 tab DAILY PO 10/15/16 09:00 10/16/16 08:35 Patient Own Medication PT OWN MED: (Cyclosporine Opth 0.... BID EACH EYE 10/15/16 10:45 Hold Patient Own Medication PT OWN MED: (Diclofe... QID TOPICAL 10/15/16 13:00 Hold (Lipitor) 40 mg HS PO 10/15/16 21:00 10/15/16 21:12 (Protonix) 40 mg DAILY PO 10/15/16 10:36 10/16/16 08:35 (Haldol Inj) 0.5 mg Q8H PRN IM 10/15/16 09:45 10/15/16 09:36 (Pill Splitter) 1 ea UNSCH PRN OTHER 10/15/16 10:45 (CeleXA) 10 mg DAILY PO 10/16/16 10:45 UNV (KlonoPIN) 0.5 mg Q12HR PO 10/16/16 10:45 UNV Family History Patient denies family psychiatric history Social History Patient was born and raised in [place], he has been living in [place] for 8 years, he lives in [place] with , he has a daughter, he is [employer], he highest level of education is 10th grade Patient's Strengths (min. 2) Family support Physical Exam On physical examination at this moment patient does not present any tremors, shakiness, no sweating, no weakness, adequately extremities strength, no gait disturbance, Vital Signs Vital Signs Date Time Temp Pulse Resp B/P Pulse Ox O2 Delivery O2 Flow Rate FiO2 10/16/16 08:00 93 Nasal Cannula 2.00 10/16/16 08:00 65 22 115/58 10/16/16 07:00 97.5 I/O 10/15/16 10/15/16 10/16/16 08:00 16:00 00:00 Intake Total 97 ml 718 ml 305 ml Output Total 300 ml 625 ml Balance -203 ml 93 ml 305 ml Lab Results CBC/BMP: 10/16/16 0455 10/16/16 0455 Lab Results Laboratory Tests Test 10/15/16 10/16/16 19:21 04:55 Thyroid Stimulating Hormone 0.951 uIU/ML 3rd Gen White Blood Count 5.9 TH/MM3 Red Blood Count 4.30 MIL/MM3 Hemoglobin 11.9 GM/DL Hematocrit 38.1 % Mean Corpuscular Volume 88.7 FL Mean Corpuscular Hemoglobin 27.7 PG Mean Corpuscular Hemoglobin 31.3 % Concent Red Cell Distribution Width 16.7 % Platelet Count 193 TH/MM3 Mean Platelet Volume 9.0 FL Neutrophils (%) (Auto) 55.8 % Lymphocytes (%) (Auto) 28.1 % Monocytes (%) (Auto) 11.2 % Eosinophils (%) (Auto) 2.7 % Basophils (%) (Auto) 2.2 % Neutrophils # (Auto) 3.2 TH/MM3 Lymphocytes # (Auto) 1.7 TH/MM3 Monocytes # (Auto) 0.7 TH/MM3 Eosinophils # (Auto) 0.2 TH/MM3 Basophils # (Auto) 0.1 TH/MM3 CBC Comment DIFF FINAL Differential Comment Sodium Level 144 MEQ/L Potassium Level 4.0 MEQ/L Chloride Level 112 MEQ/L Carbon Dioxide Level 26.1 MEQ/L Anion Gap 6 MEQ/L Blood Urea Nitrogen 12 MG/DL Creatinine 0.83 MG/DL Estimat Glomerular Filtration 90 ML/MIN Rate Random Glucose 107 MG/DL Calcium Level 8.2 MG/DL Total Bilirubin 0.5 MG/DL Aspartate Amino Transf 19 U/L (AST/SGOT) Alanine Aminotransferase 23 U/L (ALT/SGPT) Alkaline Phosphatase 87 U/L Total Protein 6.0 GM/DL Albumin 3.1 GM/DL Mental Status Examination Appearance Elderly man, age appearing, good hygiene, [facility], calm, cooperative and pleasant Speech: Unremarkable Orientation: x3 Memory: Unremarkable Thought Process: Logical Thought Content: Unremarkable Language Adequately language structure and grammar, with complete sentences an adequate wording Fund of Knowledge Adequate for his level of education Hallucination Type: None Attention and Concentration: Good Suicidal Ideation: No Previous Suicide Attempts: No Homicidal Ideation: No Previous Homicide Attempts: Yes Insight: Good Affect: Good Mood: Appropriate Motor Activity: Normal gait Assessment & Plan Problem List: (1) Panic disorder Assessment & Plan: On psychiatric evaluation today patient is calm, cooperative and pleasant. He is also logical, coherent and relevant. Oriented 3, no attention deficit, no fluctuation of consciousness, no delirium, no gross cognitive impairment present. Patient reports good mood to this moment, denies anhedonia, denies hopelessness, helplessness, worthlessness, he denies decreased energy or appetite, he denies suicidal and homicidal ideation, he denies visual, auditory hallucinations and other perceptual disturbances. However, the patient has been presenting increased in severity, intensity and frequency episodes of palpitation, chest pain, numbness, extremity weakness, sweating, sensation of time. Episodes last 20-30 minutes. No labs are normality found at this moment, TSH T3 and T4 adequate levels. Neurologist cleared the patient, with remarkable brain CT and EEG. Current presentation seems to be consistent with panic disorder. Recent family stressors has being identified. He does not meet criteria for psychotic admission at this moment. He would really benefit of an SSRI, such as citalopram 10 mg daily, can be increased up to 40 mg as patient might need and tolerated. Also would benefit of a long acting benzodiazepine FDA approved for panic disorder, such as clonazepam 0.5 mg twice a day. Xanax is another adequate option, but carries an increased risk of abuse and falls. Patient can continue discussion about treatment option with outpatient psychiatrist. Extensive support, motivation and psychoeducation provided. Consult appreciated. ICD Code: F41.0 Assessment & Plan Estimated LOS: days Roni Dave MD Oct 16, 2016 10:51
[2016-10-16] MEDS: CITALOPRAM HYDROBROMIDE 20 MG TAB PO SCH (11:33)
[2016-10-16] MEDS: clonazePAM 0.5 MG TAB PO SCH ×2 (11:33→21:34)
[2016-10-16] MEDS: ATORVASTATIN 40 MG TAB PO SCH (21:33)
[2016-10-17 00:29] VITALS: BP 124/58; PULSE 63; RESP 14; TEMP 97.9; O2SAT 97
[2016-10-17] MEDS: CHLORHEXIDINE GLUCONATE 2 % 1 PACK (2 CLOTHS)(taper/protocol) TOPICAL SCH (04:00)
[2016-10-17] MEDS: ISOSORBIDE MONONITRATE 30 MG TAB PO SCH (05:56)
[2016-10-17 06:57] LABS: AUTOMATED NEUTROPHIL # 4.6 TH/MM3 (1.8-7.7); BASOPHIL # 0.1 TH/MM3 (0-0.2); BASOPHIL % 0.7 % (0.0-2.0); EOSINOPHIL # 0.2 TH/MM3 (0-0.4); HEMATOCRIT 35.3 % (39.0-51.0); HEMO FLAGS DIFF FINAL; LYMPH % 24.4 % (9.0-44.0); LYMPHOCYTE # 1.8 TH/MM3 (1.0-4.8); MEAN CELL VOLUME 89.4 FL (80.0-100.0); MEAN CORPUSCULAR HEMOGLOBIN 28.4 PG (27.0-34.0); MEAN CORPUSCULAR HGB CONC 31.8 % (32.0-36.0); NEUT % 62.9 % (16.0-70.0); PLATELET COUNT 218 TH/MM3 (150-450); RED BLOOD COUNT 3.95 MIL/MM3 (4.50-5.90); RED CELL DISTRIBUTION WIDTH 16.5 % (11.6-17.2); WHITE BLOOD COUNT 7.5 TH/MM3 (4.0-11.0)
[2016-10-17 07:11] LABS: CHLORIDE 113 MEQ/L (98-107); POTASSIUM 3.8 MEQ/L (3.5-5.1); SODIUM (NA) 144 MEQ/L (136-145)
[2016-10-17 07:20] LABS: ANION GAP 7 MEQ/L (5-15); BICARBONATE 23.8 MEQ/L (21.0-32.0); BLOOD UREA NITROGEN 13 MG/DL (7-18)
[2016-10-17 07:23] LABS: ALT (GPT) 20 U/L (12-78); AST (GOT) 18 U/L (15-37)
[2016-10-17 07:24] LABS: GLOMERULAR FILTRATION RATE 87 ML/MIN (>89)
[2016-10-17 07:25] LABS: TOTAL BILIRUBIN ADULT 0.6 MG/DL (0.2-1.0)
[2016-10-17 07:26] LABS: ALKALINE PHOSPHATASE 83 U/L (45-117)
[2016-10-17 08:00] VITALS: BP 121/60; PULSE 74; RESP 18; TEMP 97.4; O2SAT 96
[2016-10-17 08:45] VITALS: O2SAT 92
[2016-10-17] MEDS: PANTOPRAZOLE SOD 40 MG DELAYED RELEASE TAB PO SCH (08:51)
[2016-10-17] MEDS: MULTIVITAMIN-OPHTHALMIC 1 TAB PO SCH (08:51)
[2016-10-17] MEDS: CITALOPRAM HYDROBROMIDE 20 MG TAB PO SCH (08:51)
[2016-10-17] MEDS: CARVEDILOL 6.25 MG TAB PO SCH (08:51)
[2016-10-17] MEDS: lamoTRIgine 100 MG TAB PO SCH (08:51)
[2016-10-17] MEDS: ASPIRIN EC 81 MG TABEC PO SCH (08:51)
[2016-10-17] MEDS: clonazePAM 0.5 MG TAB PO SCH (08:52)
[2016-10-17] MEDS: SODIUM CHLORIDE 0.9% FLUSH 10 ML FLUSH IV FLUSH SCH (08:53)
--- NOTE | 2016-10-17 09:29 | HHI.PR ---
Subjective History of Present Illness Patient feel better anxiety and agitation better. d/w SHAGUFTA Jones ok to dc home today. Review of Systems Constitutional Constitutional: Fatigue, Weakness Psychiatric Psychiatric: Anxiety Vitals/Results Intake & Output 10/16/16 10/16/16 10/17/16 15:00 23:00 07:00 Intake Total 240 ml Balance 240 ml Intake Oral 240 ml # Voids 1 2 3 Vital Signs Vital Signs Date Time Temp Pulse Resp B/P Pulse Ox O2 Delivery O2 Flow Rate FiO2 10/17/16 08:45 92 21 10/17/16 00:29 97.9 63 14 124/58 97 10/16/16 21:02 93 21 10/16/16 20:10 97.3 62 16 115/65 95 10/16/16 16:00 97.2 63 20 111/60 97 10/16/16 11:55 97.7 64 16 106/60 97 CBC/BMP: 10/17/16 0642 10/17/16 0642 Lab Results Laboratory Tests Test 10/17/16 06:42 White Blood Count 7.5 TH/MM3 Red Blood Count 3.95 MIL/MM3 Hemoglobin 11.2 GM/DL Hematocrit 35.3 % Mean Corpuscular Volume 89.4 FL Mean Corpuscular Hemoglobin 28.4 PG Mean Corpuscular Hemoglobin 31.8 % Concent Red Cell Distribution Width 16.5 % Platelet Count 218 TH/MM3 Mean Platelet Volume 8.7 FL Neutrophils (%) (Auto) 62.9 % Lymphocytes (%) (Auto) 24.4 % Monocytes (%) (Auto) 10.0 % Eosinophils (%) (Auto) 2.0 % Basophils (%) (Auto) 0.7 % Neutrophils # (Auto) 4.6 TH/MM3 Lymphocytes # (Auto) 1.8 TH/MM3 Monocytes # (Auto) 0.8 TH/MM3 Eosinophils # (Auto) 0.2 TH/MM3 Basophils # (Auto) 0.1 TH/MM3 CBC Comment DIFF FINAL Differential Comment Sodium Level 144 MEQ/L Potassium Level 3.8 MEQ/L Chloride Level 113 MEQ/L Carbon Dioxide Level 23.8 MEQ/L Anion Gap 7 MEQ/L Blood Urea Nitrogen 13 MG/DL Creatinine 0.85 MG/DL Estimat Glomerular Filtration 87 ML/MIN Rate Random Glucose 93 MG/DL Calcium Level 8.0 MG/DL Total Bilirubin 0.6 MG/DL Aspartate Amino Transf 18 U/L (AST/SGOT) Alanine Aminotransferase 20 U/L (ALT/SGPT) Alkaline Phosphatase 83 U/L Total Protein 5.9 GM/DL Albumin 3.0 GM/DL Physical Exam General General Appearance: No Acute Distress, Comfortable Eyes Eye Exam: Pupils Equal, Pupils Reactive, Sclera White, Extraocular Movement Intact Throat Throat Exam: Oral Mucosa [place] & Moist, Oral Pharynx Normal Neck Neck Exam: Neck Supple, Trachea Midline Pulmonary Resp Exam: Clear Bilaterally, Breath Sounds Equal, No Distress Cardiology CV Exam: Regular, Normal Sinus Rhythm Gastrointestinal/Abdomen GI Exam: Soft, Non-Tender, Bowel Sounds Present Musculoskeletal MS Exam: Normal Tone Integumentary Skin Exam: Clear, Warm, Dry, Intact Extremeties Extremities Exam: No Edema Neurologic Neuro Exam: Alert, Awake, Moving All Extremities Neuro Remarks dementia VTE Prophylaxis VTE Prophylaxis Device: SCDs PUD Prophylasis PUD Prophylaxis: Protonix Assessment/Plan Assessment/Plan ASSESSMENT/PLAN This is a 80-year male who came to the ER diagnosed with 1. Bilateral arm and leg weakness. There are no focal neurological deficits. Neurology input noted per neurology anxiety disorder with baseline dementia, likely getting worse. At this point in time, unfortunately an MRI cannot be done because of his penile implant. stroke unlikely. EEG did not show any epileptic activity. Psychiatry input noted for assistance in adjusting medications. checked thyroid panel to make sure - TSH, T4 and a B12 noted... The patient's CT of the brain does not show anything acute. 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 No focal high-grade stenosis is demonstrated. Tiny but patent left vertebral artery. Further recommendation per neurology. History of dementia. Continue home medications. History of arthritis. Continue home medications. History of coronary artery disease. Continue home medication. Anxiety. Continue with Xanax 0.5 mg p.o. t.i.d. History of hyperlipidemia. Continue home medication. DVT prophylaxis. SCD. GI prophylaxis with Protonix 40 mg p.o. daily. ok to dc home today. f/u with pcp/ neurology/ psych 1 week. Discussed Condition with: Patient Lopez Milligan MD Oct 17, 2016 09:29
[2016-10-17] MEDS ORDERED: CITA20TA4 PO (09:32)
[2016-10-17] MEDS ORDERED: CLON.5 PO (09:32)
[2016-10-17] MEDS ORDERED: CYAN100025 SL (09:43)
[2016-10-17 12:00] VITALS: BP 129/59; PULSE 60; RESP 19; O2SAT 99
--- NOTE | 2016-10-23 18:53 | MD ---
cc: LOPEZ ANDERSON MD ADMISSION DATE: 10/15/2016 DISCHARGE DATE: 10/17/2016 Okay to discharge the patient home. Condition at the time of discharge satisfactory. Activity as tolerated. Diet - cardiac diet. ALLERGIES DICLOFENAC LEVOFLOXACIN MRI PRECAUTION BECAUSE OF PENILE IMPLANT MEDICATIONS 1. Citalopram 20 mg p.o. daily. 2. Clonazepam 0.5 mg p.o. q.12 h. 3. Aspirin 81 mg p.o. daily. 4. Coreg 6.25 mg twice a day. 5. Restasis eye drop, 1 drop each eye twice a day. 6. Diclofenac sodium topical gel four times a day. 7. Isosorbide mononitrate 30 mg p.o. daily 8. Lamotrogine 150 mg twice a day 9. 10. 10 mg p.o. t.i.d. 11. Multivitamin p.o. daily. 12. Crestor 20 mg p.o. daily. The patient advised to follow up PCP, neurology and psychiatry. ADMISSION DIAGNOSIS Anxiety and agitation and panic attack DISCHARGE DIAGNOSIS 1. Anxiety, agitation and panic attack, improved. The patient seen by psychiatrist. Anxiety medicine changed from Xanax to Clonazepam 0.5 mg twice a day and also Citalopram increased to 20 mg p.o. daily. 2. Bilateral arm and leg weakness. No focal neurological deficit. Neurology has seen the patient. The patient had a normal CT scan of the brain. MRI cannot be done because of penile implant. EEG did not show epileptic activity. Psychiatry has seen the patient, wants to change Xanax to lorazepam 0.5 mg twice a day and also increase Citalopram to more than 10 mg which was changed to [address] of the neck shows calcified atherosclerotic plaquing noted at both carotid bifurcation. No focal gradient stenosis is demonstrated, tiny but patent left ventricular artery. include dementia, arthritis, coronary artery disease, anxiety, hyperlipidemia. HOSPITAL COURSE This is a 80-year old male admitted with above-mentioned complaints and problems seen by neurology. CT brain done shows nothing acute. 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 The patient remained stable. The patient's agitation improved after giving anxiety medicine.. Psychiatry has seen the patient and recommendation was given as dictated above. The patient had a normal PT/PTT, INR and fibrinogen level. Urine tox screen positive for benzodiazepine. Trace of ketones and trace of occult blood, 3-5 RBCs, 6-8 WBCs in the urine. MRSA not detected. Further details in the medical record. Lopez Anderson MD EA/ /9:40 AM /6:34 PM
== END 2016-10-17 12:05 | disposition home or self-care (01) ==
LOC: PHED 22:32 → INTOOBSV 10-15 02:29 → PHEDA 10-15 02:29 → PHICU 10-15 04:05 → PH3B 10-16 10:55
PROVIDERS: ADMIT Family Medicine; ATTEND Family Medicine
DX: F41.0 Panic disorder [episodic paroxysmal anxiety] (principal); R53.1 Weakness; I25.10 Atherosclerotic heart disease of native coronary artery without angina pectoris; Z98.61 Coronary angioplasty status; F03.90 Unspecified dementia, unspecified severity, without behavioral disturbance, psychotic disturbance, mood disturbance, and anxiety; M19.90 Unspecified osteoarthritis, unspecified site; E78.5 Hyperlipidemia, unspecified; I67.1 Cerebral aneurysm, nonruptured; I10 Essential (primary) hypertension; F32.9 Major depressive disorder, single episode, unspecified; K21.9 Gastro-esophageal reflux disease without esophagitis; Z86.73 Personal history of transient ischemic attack (TIA), and cerebral infarction without residual deficits; Z85.46 Personal history of malignant neoplasm of prostate; Z79.899 Other long term (current) drug therapy; Z79.82 Long term (current) use of aspirin; Z87.891 Personal history of nicotine dependence
CPT/HCPCS: 70450; 70496; 70498; 80048; 80053; 80307; 81001; 82550; 82607; 84439; 84443; 84484; 85025; 85384; 85610; 85730; 86850; 86900; 86901; 87641; 93005; 95819; 96360; 96361; 99291; G0378; J1630; J7030; P9612; Q9967